=== PATIENT | female | born 1965 | race Caucasian/White ===

== ENCOUNTER 2018-01-07 06:13 | Inpatient (IN) | payer OTHER ==
[~2018-01-07 06:13] MED LIST: Buffered Lidocaine 0.9% SYRIN* 5 ML/SYR SYRINGE INTRADERM ONE; Famotidine TAB* 20 MG PO ONE
[2018-01-07] MEDS ORDERED: ceFAZolin 2 GM PREMIX (*) 2 GM/50 ML BAG IVPB ONE ×2 (06:14→12:11)
[2018-01-07] MEDS ORDERED: Famotidine TAB* 20 MG ONE (06:14)
[2018-01-07] MEDS ORDERED: Lidocaine 1% MPF wEPI 200,000* 30 ML SDV ONE (07:07)
[2018-01-07] MEDS ORDERED: Thrombin 5,000 UNITS* 1 APPLIC KIT - topical use - TOPICAL ONE (07:07)
[2018-01-07] MEDS ORDERED: Bacitracin IV* 50,000 UNITS INJ ONE ×2 (07:07→13:11)
[2018-01-07] MEDS ORDERED: fentaNYL* 50 MCG/ML 2 ML VIAL (100 MCG VIAL) ONE ×3 (07:17→14:37)
[2018-01-07] MEDS ORDERED: Propofol* 10 MG/ML 20 ML BTL IV PUSH ONE ×3 (07:17→09:45)
[2018-01-07] MEDS ORDERED: Dexamethasone IV* 4 MG/ML 1 ML (4 MG) ONE ×2 (07:17→11:02)
[2018-01-07] MEDS ORDERED: Midazolam* 1 MG/ML 2 ML VIAL (2 MG) ONE (07:17)
[2018-01-07] MEDS ORDERED: Lidocaine 2% PF * 5 ML VIAL ONE (07:18)
[2018-01-07] MEDS ORDERED: Rocuronium* 10 MG/ML VIAL ONE (07:20)
[2018-01-07] MEDS ORDERED: Artificial Tear OPHTH.OINT* 3.5 GM ONE (07:46)
[2018-01-07] MEDS ORDERED: Succinylcholine* 20 MG/ML 10 ML VIAL ONE (08:05)
[2018-01-07] MEDS ORDERED: fentaNYL* 50 MCG/ML 5 ML VIAL (250 MCG VIAL) ONE ×2 (08:25→09:45)
[2018-01-07] MEDS ORDERED: EPHEDrine (Pressors)* 50 MG/ML VIAL ONE (08:31)
[2018-01-07] MEDS ORDERED: Propofol* 2,000 MG/200 ML BTL ONE (09:40)
[2018-01-07] MEDS ORDERED: Midazolam* 1 MG/ML 5 ML VIAL (5 MG) ONE (10:09)
[2018-01-07] MEDS ORDERED: Propofol* 100 ML ONE (11:45)
[2018-01-07] MEDS ORDERED: DiMENhydriNATE IV* 50 MG/ML VIAL IV PUSH PRN (12:40)
[2018-01-07] MEDS ORDERED: Acetaminophen IV 1GM/100ML * 1,000 MG/100 ML VIAL IVPB ONE (12:40)
[2018-01-07] MEDS ORDERED: Naloxone* 0.4 MG/ML 1 ML VIAL IV PRN (12:40)
[2018-01-07] MEDS ORDERED: Acetaminophen IV 1GM/100ML * 10 MG/ML VIAL IVPB ONE (12:40)
[2018-01-07] MEDS ORDERED: Ondansetron INJ* 2 MG/ML VIAL ONE (13:15)
[2018-01-07] MEDS ORDERED: Acetaminophen IV 1GM/100ML * 100 ML ONE (13:45)
[2018-01-07] MEDS: fentaNYL* 50 MCG/ML 2 ML VIAL (100 MCG VIAL) IV PRN ×3 (14:21→14:42)
--- NOTE | 2018-01-07 14:30 | RAD ---
INDICATION: Spinal fusion COMPARISONS: Plain film dated November 03, 2017 TECHNIQUE: Fluoroscopy was provided for a surgical procedure. Total fluoroscopy time is: 19.23 seconds. The 3-D CTDI is 52.35 FINDINGS: Spot images and coned-down images demonstrate fusion at L4 and L5 counting from L5 as the last lumbar type vertebral body. IMPRESSION: FLUOROSCOPY WAS PROVIDED FOR A SURGICAL PROCEDURE CPT II Codes: G9500
[2018-01-07] MEDS ORDERED: HYDROmorphone INJ* 2 MG/ML CARPUJECT SYRINGE ONE (14:37)
[2018-01-07] MEDS: Gabapentin CAP(*) 300 MG PO SCH ×2 (14:43→20:23)
[2018-01-07] MEDS: HYDROmorphone INJ* 1 MG/ML CARPUJECT SYRINGE IV PRN ×2 (14:49→15:05)
[2018-01-07] MEDS: FLUoxetine CAP* 20 MG PO SCH (17:51)
[2018-01-07] MEDS: HYDROcodone/ACETAMIN 5-325 MG* 1 TAB PO PRN ×2 (17:51→22:20)
[2018-01-07] MEDS ORDERED: Cyclobenzaprine TAB* 10 MG PO PRN (18:42)
[2018-01-07] MEDS: Acetaminophen TAB* 325 MG PO PRN (20:23)
[2018-01-08] MEDS: Acetaminophen TAB* 325 MG PO PRN (00:16)
[2018-01-08] MEDS: HYDROcodone/ACETAMIN 5-325 MG* 1 TAB PO PRN ×5 (02:27→20:38)
[2018-01-08] MEDS: Levothyroxine TAB* 100 MCG TAB PO SCH (06:19)
--- NOTE | 2018-01-08 08:29 | PN ---
Progress Note - Progress Note Date of Service: 01/08/18 SOAP: Subjective: [S/p L4-5 TLIF with laminectomy and discectomy on right, POD #1. Surgery complicated by dural tear repaired in during surgery. Complains of headache and low back incisional pain today. Pain controlled with PO pain medications and muscle relaxant. Denies nausea.] Objective: [ Vital Signs: Temp Pulse Resp BP Pulse Ox 97.8 F 75 14 121/74 98 01/08/18 07:12 01/08/18 07:12 01/08/18 07:12 01/08/18 07:12 01/08/18 07:12 General: Alert and laying flat in bed. Neuro: Motor and sensory intact. Incision: Intact and flat, no swelling.] Assessment: [Headache post-op, pain controlled with PO meds.] Plan: [1. Maintain HOB flat, bedrest today. 2. Continue pain management.]
[2018-01-08] MEDS: Gabapentin CAP(*) 300 MG PO SCH ×3 (09:19→20:37)
[2018-01-08] MEDS: Atorvastatin* 20 MG TAB PO SCH (13:40)
[2018-01-08] MEDS: Omeprazole CAP* 20 MG PO SCH (13:40)
[2018-01-08] MEDS ORDERED: Senna TAB PO PRN (15:22)
--- NOTE | 2018-01-08 17:41 | OP ---
OPERATIVE REPORT: DATE OF SURGERY: 01/07/18 - Inpatient, room SSU 339-01 DATE OF : 63 SURGEON: Ramone Steiner MD. APPLICATIONS MANAGER: AUSTIN Marquez Procedure was performed with assistance of the PA because of the complexity of the case. ANESTHESIOLOGIST: Nura Washburn MD. ANESTHESIA: General. PRE-OP DIAGNOSES: Degenerative disk disease and spondylolisthesis at L4-5. POST-OP DIAGNOSES: Degenerative disk disease and spondylolisthesis at L4-5. OPERATIVE PROCEDURE: The patient underwent right L4-5 MIS TLIF with decompressive laminectomy, interbody PEEK cage with autologous iliac crest bone graft and DBM pedicle screws at L4 and L5 with intraoperative navigation and L5 laminotomy. ESTIMATED BLOOD LOSS: Per Anesthesia records. COMPLICATIONS: None. SUMMARY: The patient is a very pleasant 52-year-old female with complaints of back pain radiating to the right lower extremity. MRI revealed degenerative disk disease with spondylolisthesis at L4-5. The patient had weakness of the right foot dorsiflexion and EHL as well as plantarflexion with decreased sensation in the right foot. After failing conservative treatment modalities, she was offered the option of surgical intervention in the form of right L4-5 MIS TLIF. After explaining all expectations, limitations, and possible complication of the procedure with complications included, but not limited to bleeding, infection, risk of injury to adjacent structures, coma, paralysis, , need for additional procedure, anesthesia risks, stroke, blindness, cancer, instability, hardware failure, adjacent level disease, pseudoarthrosis, spinal fluid leak, need for peritoneal lumbar drain or lumboperitoneal shunt, anesthesia risk. The patient was agreeable to proceed with surgery and informed consent was obtained. The patient understood that her condition may not improve and in fact may get worse after the surgery and that she may need to have additional procedure in the future. She understood the risk of prolonged hospitalization and need for ICU care and also that operative plan may be modified according to the intraoperative findings and conditions. The same were discussed with the patient's son and the whole family was agreeable to proceed with surgery. DESCRIPTION OF PROCEDURE: The patient was brought to the operating room and was placed under general anesthesia by the anesthesia team. She was carefully positioned prone on the Raza table and all bony prominences were meticulously padded. Her skin was prepped and draped in the standard fashion. After appropriate surgical pause and patient identification, one incision over the right iliac crest was performed with #10 surgical blade after infiltrating the skin with local anesthetic. The Corex trocar was used to harvest the iliac crest bone graft and percutaneous pin was inserted to secure the navigation star. Intraoperative O- arm imaging was obtained and the patient data was transferred in the navigation platform. Under stereotactic navigation, the appropriate surgical level was identified and the paramedian incision that was right in the midline was performed after infiltrating the skin with local anesthetic #10 was used to incise the skin. Incision was carried down to the dorsal fascia and a METRx retractor was introduced over series of dilators. Appropriate surgical level was confirmed with intraoperative navigation and a laminectomy L5 on the left side was performed with high speed drill and Kerrison punches, partial facetectomy was also performed and the locally harvested bone graft was kept for filling portion of the procedure. The L5 nerve root was readily identified and foraminotomy was performed. The disk space was identified also after gentle retraction of the nerve root and the thecal sac. A final diskectomy was performed after incising the annulus fibrosis with #15 surgical blade and the disk space was prepared with a series of dilators and curettes. After appropriate sizing of the disk space, a 11 x 26 CAPSTONE PTC Medtronic interbody cage was introduced after being filled with locally and right iliac crest bone graft and DBM putty while the remainder of the graft was inserted into the disk space prior to the insertion of the cage. At the end of the procedure, the thecal sac and nerve root was free of any pressure phenomenon and copious irrigation was performed and meticulous hemostasis was confirmed. A small durotomy was identified in the superior part of the exposed dura without extension to the arachnoid layer. It was elected to enforce this durotomy with dural drain and dressing in 2 layers. Valsalva maneuver did not reveal any evidence of spinal fluid leak. The tubular dilator was then gently removed and after meticulous hemostasis was confirmed, the dorsal fascia was closed with interrupted 0-Vicryl sutures in a water-tight fashion. A second O-arm imaging was then obtained and data was used to confirm excellent placement of interbody cage as well as plan for the insertion of the pedicle screws. During the durotomy repair, a small decrease of the SSEPs was identified, which was responsive to blood pressure elevations as well as an extra 2 mg of Decadron throughout the remaining of the procedure. The SSEPs were constantly improving. The projection of the pedicle screws was marked on the skin and the pedicles were cannulated with high torque drill with navigated drill guide and after placement of guidewires, Medtronic Voyager 6.5 x 40 mm screws were inserted at L4 and L5. Two 4.5 mm sarah screws were then inserted and connected with screw head caps. Final intraoperative OR imaging confirmed excellent placement of all hardware. The expansion towers were then removed as well as the navigation pin and the wounds were copiously irrigated and after meticulous hemostasis, closed by layers with 0 interrupted Vicryl suture for subcutaneous tissue and 2-0 interrupted for superficial layer of the subcutaneous tissue. All the skin was then approximated with 3-0 Prolene for lumbar incisions and with Dermabond over the iliac crest incision. At the end of the procedure, all counts were reported to be correct. The patient remained hemodynamically stable throughout the case. Intraoperative monitoring was stable throughout the case with the exception of decrease of the right lower extremity SSEP which was improving through the remaining of the case. The patient was then turned supine, was extubated and was transferred to Recovery in excellent condition. The case was done with assistance of surgical PA because of the complexity of the case [id number]/[facility] #: [id number] YADIRA
[2018-01-08] MEDS: Diazepam TAB(*) 5 MG PO PRN (17:49)
[2018-01-08] MEDS: FLUoxetine CAP* 20 MG PO SCH (17:49)
[2018-01-08] MEDS: Docusate CAP* 100 MG PO PRN (17:52)
[2018-01-08] MEDS: Ondansetron INJ* 2 MG/ML VIAL IV PRN (21:52)
[2018-01-09] MEDS: HYDROcodone/ACETAMIN 5-325 MG* 1 TAB PO PRN ×2 (00:45→05:53)
[2018-01-09] MEDS: Levothyroxine TAB* 100 MCG TAB PO SCH (05:52)
[2018-01-09] MEDS: Ondansetron INJ* 2 MG/ML VIAL IV PRN (09:15)
[2018-01-09] MEDS: Gabapentin CAP(*) 300 MG PO SCH ×3 (09:59→20:53)
--- NOTE | 2018-01-09 10:40 | PN ---
Progress Note - Progress Note Date of Service: 01/09/18 SOAP: Subjective: [S/p L4-5 TLIF POD #2. Persistent BAUER. Improved yesterday but now severe again. Complains of nausea as well, has experienced side effects to pain meds in past. Low back is sore with occasional stabbing pain. Lower extremity pain experienced last night is now resolved. ] Objective: [ Vital Signs: Temp Pulse Resp BP Pulse Ox 98.0 F 76 18 116/68 91 01/09/18 07:41 01/09/18 07:41 01/09/18 09:59 01/09/18 07:41 01/09/18 07:41 General: Laying flat in bed. Neuro: RLE weakness dorsiflexion, plantarflexion and EHL as was pre-op. Incision: Flat, no swelling, nontender.] Assessment: [Post-op L4-5 TLIF. Persistent BAUER and mild nausea. ] Plan: [1. Continue pain management, try decreasing norco and substituting with tylenol and valium. 2. Continue to monitor incision for bulging and drainage. 3. Continue bowel medications.]
[2018-01-09] MEDS: Omeprazole CAP* 20 MG PO SCH (11:34)
[2018-01-09] MEDS: Diazepam TAB(*) 5 MG PO PRN ×2 (11:34→20:53)
[2018-01-09] MEDS: Atorvastatin* 20 MG TAB PO SCH (11:34)
[2018-01-09] MEDS: FLUoxetine CAP* 20 MG PO SCH (18:00)
[2018-01-09] MEDS ORDERED: Bisacodyl SUPP* 10 MG SUPP PR PRN (19:06)
[2018-01-09] MEDS ORDERED: HYDROcodone/ACETAMIN 5-325 MG* 1 TAB PO PRN (19:07)
[2018-01-09] MEDS: Magnesium Hydroxide LIQ* 30 ML UDC PO PRN (19:24)
[2018-01-09] MEDS: Docusate CAP* 100 MG PO PRN (19:24)
[2018-01-10] MEDS: Acetaminophen TAB* 325 MG PO PRN ×4 (03:37→19:22)
[2018-01-10] MEDS: Levothyroxine TAB* 100 MCG TAB PO SCH (05:24)
--- NOTE | 2018-01-10 08:25 | PN ---
Progress Note - Progress Note Date of Service: 01/10/18 SOAP: Subjective: [S/p L4-5 TLIF, POD #3. Patient feeling much better this morning. HOB elevated to 30 degrees yesterday without worsening of BAUER, pt feels better sitting up. Headache comes and goes; unrelated to position and HOB degree. Taking Tylenol for pain; likely experienced nausea and BAUER with Talihina. Valium effective for lumbar soreness and muscle spasms. No recent BM, bowel meds ordered and suppository given this morning. Reports numbness/altered sensation to dorsal right foot. Denies fever, chills and nausea this morning. ] Objective: [ Vital Signs: Temp Pulse Resp BP Pulse Ox 98.4 F 78 20 119/87 91 01/10/18 07:18 01/10/18 07:18 01/10/18 07:41 01/10/18 07:18 01/10/18 07:18 General: Awake and alert, recumbent in bed. More comfortable this morning. Neuro: Motor and sensory intact. Right foot weakness improving. Incision: Intact and dressings in place. No bulging. Nontender. ] Assessment: [Post-op TLIF L4-5, satisfactory post-op course. Headache improving. No BM but meds available. Pain well controlled. ] Plan: [1. Continue bowel medications 2. Continue pain/spasms management, Tylenol and Valium 3. Up out of bed to chair this morning. If BAUER worsens, return to bed. 4. Place lumbar corset brace while out of bed. 5. Possibly PT/OT evaluation this afternoon. ]
[2018-01-10] MEDS: Gabapentin CAP(*) 300 MG PO SCH ×3 (08:44→19:22)
[2018-01-10] MEDS: Magnesium Hydroxide LIQ* 30 ML UDC PO PRN (08:49)
[2018-01-10] MEDS: Docusate CAP* 100 MG PO PRN (08:50)
[2018-01-10] MEDS: Diazepam TAB(*) 5 MG PO PRN (08:50)
[2018-01-10] MEDS: Atorvastatin* 20 MG TAB PO SCH (13:13)
[2018-01-10] MEDS: Omeprazole CAP* 20 MG PO SCH (13:13)
[2018-01-10] MEDS: FLUoxetine CAP* 20 MG PO SCH (18:13)
[2018-01-11] MEDS: Acetaminophen TAB* 325 MG PO PRN ×3 (01:00→12:09)
[2018-01-11] MEDS: Diazepam TAB(*) 5 MG PO PRN ×2 (02:01→12:08)
[2018-01-11] MEDS: Levothyroxine TAB* 100 MCG TAB PO SCH (05:21)
--- NOTE | 2018-01-11 07:58 | PN ---
Progress Note - Progress Note Date of Service: 01/11/18 SOAP: Subjective: [S/p L4-5 TLIF, POD #4. Feeling much better this morning although complains of intermittent right thigh stabbing pain. Pain and spasms well controlled with tylenol and valium PO. She is ambulating with a walker. Headache is intermittent, unrelated to position. Denies nausea, fever, chills. ] Objective: [ Vital Signs: Temp Pulse Resp BP Pulse Ox 98.1 F 87 18 121/73 94 01/11/18 04:04 01/11/18 04:04 01/11/18 05:01 01/11/18 04:04 01/11/18 04:04 General: Alert, expressed moderate back pain. Neuro: Motor and sensory intact. Incision: Intact and without bulging or drainage. ] Assessment: [ Satisfactory post-op. ] Plan: [1. PT/OT evals this morning. 2. Discharge home today. 3. Discharge instructions discussed with the patient. ]
--- NOTE | 2018-01-11 08:20 | RAD ---
HISTORY: Status post spinal fusion COMPARISONS: November 03, 2014 VIEWS: 3 , Frontal, lateral, and coned-down lateral sacral views of the lumbar spine while weightbearing FINDINGS: ALIGNMENT: The alignment is normal. VERTEBRAL BODIES: Patient is status post spinal fusion with pedicle screws at L4 and L5. There is no hardware failure or osteolysis. JOINTS: There is extensive facet hypertrophic change along the lumbar spine. INTERVERTEBRAL DISCS: Intervertebral graft material is noted at L4-L5. SOFT TISSUE: Unremarkable. 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 IMPRESSION: STATUS POST SPINAL FUSION AT L4-L5
[2018-01-11] MEDS: Gabapentin CAP(*) 300 MG PO SCH (08:49)
[2018-01-11 12:05] VITALS: BP 130/83
[2018-01-11] MEDS: Omeprazole CAP* 20 MG PO SCH (12:08)
[2018-01-11] MEDS: Atorvastatin* 20 MG TAB PO SCH (12:09)
== END 2018-01-11 12:20 | disposition home or self-care (01) | DRG 460 ==
LOC: AA 06:13 → SSU 13:26
PROVIDERS: ADMIT Neurological Surgery; ATTEND Neurological Surgery
PROC: 0SB20ZZ Excision of Lumbar Vertebral Disc, Open Approach (ICD-10-PCS; 2018-01-07)
PROC: 0QB20ZZ Excision of Right Pelvic Bone, Open Approach (ICD-10-PCS; 2018-01-07)
PROC: 00QT0ZZ Repair Spinal Meninges, Open Approach (ICD-10-PCS; 2018-01-07)
PROC: 8E0WXBF Computer Assisted Procedure of Trunk Region, With Fluoroscopy (ICD-10-PCS; 2018-01-07)
PROC: 0SG00AJ Fusion of Lumbar Vertebral Joint with Interbody Fusion Device, Posterior Approach, Anterior Column, Open Approach (ICD-10-PCS; principal; 2018-01-07 07:30)
DX: M51.16 Intervertebral disc disorders with radiculopathy, lumbar region (principal); G97.41 Accidental puncture or laceration of dura during a procedure; M43.16 Spondylolisthesis, lumbar region; Y83.8 Other surgical procedures as the cause of abnormal reaction of the patient, or of later complication, without mention of misadventure at the time of the procedure; Y92.234 Operating room of hospital as the place of occurrence of the external cause; M48.061 Spinal stenosis, lumbar region without neurogenic claudication; M51.27 Other intervertebral disc displacement, lumbosacral region; M47.26 Other spondylosis with radiculopathy, lumbar region; E66.9 Obesity, unspecified; R51 Headache; R11.0 Nausea; R20.0 Anesthesia of skin; E78.00 Pure hypercholesterolemia, unspecified; M19.90 Unspecified osteoarthritis, unspecified site; F32.9 Major depressive disorder, single episode, unspecified; Z88.5 Allergy status to narcotic agent; Z87.891 Personal history of nicotine dependence; Z68.36 Body mass index [BMI] 36.0-36.9, adult
CPT/HCPCS: 72100; 76001; A9270-GY; J0330; J0690; J1100; J1170; J2001; J2250; J2405; J2704; J3010

== ENCOUNTER 2019-01-28 14:18 | Emergency (ER) | payer OTHER ==
--- OUTSIDE RECORDS SUMMARY | 2019-01-28 14:31 | XMS REPORT | Continuity of Care Document ---
:1965 External Reference #:[id number] Author Name Sailaja Cross Care Team Providers Name Role Phone Monse Chahal MD Primary Care Physician Unavailable Payers Date Identification Numbers Payment Provider Subscriber Policy Number: [id number] [employer] Ashli Larkin PayID: [id number] [address] [place] [address] Advance Directives Description No Information Available Problems Active Problems Provider Date Lumbar spondylolisthesis Ramone Steiner MD Onset: 11/03/2017 Lumbosacral spondylosis without myelopathy Ramone Steiner MD Onset: Obesity Ramone Steiner MD Onset: 11/03/2017 Localized, primary osteoarthritis of the Moira Walker M.D. Onset: 04/19/2018 pelvic region and thigh Trochanteric bursitis Moira Walker M.D. Onset: 04/19/2018 Morbid obesity Moira Walker M.D. 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[employer] ETOH Use Denies alcohol use Tobacco Use Start: Unknown End: Patient is a former smoker Unknown Recreational Drug Use Denies Drug Use Smoking Status Reviewed: 01/26/19 Patient is a former smoker Exercise Type/Frequency Does not exercise Allergies, Adverse Reactions, Alerts Active Allergies Reaction Severity Comments Date Codeine Nausea and Vomiting 11/03/2017 Medications Active Medications SIG Qnty Indications Ordering Provider Date Atorvastatin Calcium take 1 tablet at Unknown 20mg bedtime Tablets Esomeprazole Magnesium 1 by mouth every Unknown 20mg day Capsules DR Fluoxetine HCL 1 by mouth every Unknown 20mg day Capsules Levothyroxine Sodium 1 by mouth every Unknown 100mcg day Tablets Tramadol HCL take 1 tablet by Unknown 50mg Tablets mouth every 4 to 6 hours if needed for pain History Medications Clobetasol Propionate apply twice daily to Unknown - 2017 0.05% affected area. use for Solution two weeks and then stop. Diclofenac Sodium take 1 tablet twice a Unknown - 11/03/[address] day with food Gabapentin 1 by mouth three times Unknown - 08/03/2018 300mg Capsules a day Melatonin 1 tab by mouth at Unknown - 11/03/2017 10mg Capsules bedtime as needed for insomnia Phentermine HCL as needed Unknown - 11/03/2017 37.5mg Tablets Ibuprofen as needed Unknown - 01/20/2018 200mg Capsules Medications Administered in Office Medication SIG Qnty Indications Ordering Provider Date Depomedrol 40MG Moira Walker M.D. 08/04/2018 Injection Depomedrol 40MG Moira Walker M.D. 04/26/2018 Injection Depomedrol 40MG Moira Walker M.D. 04/19/2018 Injection Immunizations Description No Information Available Vital Signs Date Vital Result Comment 01/26/2019 8:17am Height 68 inches 5'8" Weight 280.00 lb BP Systolic Sitting 126 mmHg BP Diastolic Sitting 80 mmHg Pain Level 3 BMI (Body Mass Index) 42.6 kg/m2 12/10/2018 8:28am Height 68 inches 5'8" Weight 280.00 lb BP Systolic Sitting 130 mmHg BP Diastolic Sitting 88 mmHg Pain Level 3 BMI (Body Mass Index) 42.6 kg/m2 11/16/2018 3:02pm Height 68 inches 5'8" Weight 280.00 lb BP Systolic Sitting 130 mmHg BP Diastolic Sitting 84 mmHg Pain Level 5 BMI (Body Mass Index) 42.6 kg/m2 08/30/2018 12:56pm Height 68 inches 5'8" Weight 272.00 lb BP Systolic Sitting 130 mmHg BP Diastolic Sitting 78 mmHg Pain Level 2 BMI (Body Mass Index) 41.4 kg/m2 08/04/2018 8:01am Height 68 inches 5'8" Weight 272.00 lb BP Systolic 124 mmHg BP Diastolic 84 mmHg Body Temperature 98.3 F BMI (Body Mass Index) 41.4 kg/m2 06/14/2018 2:18pm Height 68 inches 5'8" Weight 260.00 lb BP Systolic Sitting 122 mmHg BP Diastolic Sitting 86 mmHg Pain Level 6 BMI (Body Mass Index) 39.5 kg/m2 05/31/2018 2:42pm Height 68 inches 5'8" Weight 260.00 lb Heart Rate 74 /min BP Systolic 118 mmHg BP Diastolic 72 mmHg Respiratory Rate 12 /min Pain Level 0 BMI (Body Mass Index) 39.5 kg/m2 04/26/2018 2:33pm Height 68 inches 5'8" Weight 265.00 lb BP Systolic 122 mmHg BP Diastolic 84 mmHg Body Temperature 98.3 F BMI (Body Mass Index) 40.3 kg/m2 04/19/2018 9:39am Height 68 inches 5'8" Weight 258.50 lb Heart Rate 72 /min BP Systolic 118 mmHg BP Diastolic 76 mmHg Respiratory Rate 12 /min Body Temperature 99.2 F Pain Level 4 BMI (Body Mass Index) 39.3 kg/m2 04/12/2018 1:49pm Height 68 inches 5'8" Weight 262.00 lb Heart Rate 92 /min BP Systolic Sitting 130 mmHg BP Diastolic Sitting 94 mmHg Respiratory Rate 16 /min Pain Level 1 BMI (Body Mass Index) 39.8 kg/m2 03/01/2018 2:22pm Height 68 inches 5'8" Weight 255.00 lb Heart Rate 108 /min BP Systolic 124 mmHg BP Diastolic 82 mmHg Respiratory Rate 20 /min Pain Level 3 BMI (Body Mass Index) 38.8 kg/m2 01/27/2018 10:57am Height 68 inches 5'8" Weight 240.00 lb BP Systolic Sitting 110 mmHg BP Diastolic Sitting 78 mmHg Body Temperature 98.0 F Pain Level 1 BMI (Body Mass Index) 36.5 kg/m2 01/20/2018 12:56pm Height 68 inches 5'8" Weight 240.00 lb BP Systolic Sitting 122 mmHg BP Diastolic Sitting 78 mmHg Body Temperature 98.7 F Pain Level 4 BMI (Body Mass Index) 36.5 kg/m2 01/01/2018 12:44pm Height 68 inches 5'8" Weight 240.00 lb BP Systolic Sitting 122 mmHg BP Diastolic Sitting 80 mmHg Pain Level 3 BMI (Body Mass Index) 36.5 kg/m2 11/03/2017 9:13am Height 68 inches 5'8" Weight 240.00 lb Heart Rate 77 /min BP Systolic Sitting 126 mmHg BP Diastolic Sitting 81 mmHg Pain Level 2 BMI (Body Mass Index) 36.5 kg/m2 Results Test Date Facility Test Result H/L Range Note Basic Metabolic 01/01/2018 [facility] Sodium 140 mmol/L N 139- [address] [place] [address] [phone] Potassium 4.5 mmol/L N 3.5-5.0 Chloride 104 mmol/L N 101-111 Co2 Carbon Dioxide 28 mmol/L N 22-32 Anion Gap 8 mmol/L N 2-11 Glucose 103 mg/dL High 70-100 Blood Urea Nitrogen 16 mg/dL N 6-24 Creatinine 0.78 mg/dL N 0.51-0.95 BUN/Creatinine Ratio 20.5 High 8-20 Calcium 8.6 mg/dL N 8.6-10.3 Egfr Non- 77.3 >60 Egfr 99.4 >60 1 Laboratory test 12/31/2017 [facility] TSH (Thyroid 1.37 mcIU/mL N 0.34-5.[address] [place]) [place] [address] [phone] Type & Screen 12/31/2017 [facility] Patient Blood O Positive [address] [place] [address] [phone] Antibody Screen NEGATIVE Urinalysis Profile 12/31/2017 [facility] Urine Color Yellow [facility] [place] [address] [phone] Urine Appearance Clear Urine Specific Vail 1.025 N 1.010-1.030 Urine pH 5.0 N 5-9 Urine Urobilinogen Negative Negative Urine Ketones Negative Negative Urine Protein Negative Negative Urine Leukocytes Negative Negative Urine Blood Negative Negative Urine Nitrite Negative Negative Urine Bilirubin Negative Negative Urine Glucose Negative Negative Laboratory test 12/31/2017 [facility] Partial 32.6 seconds N 26.0-36.[address] [place] [address] PTT [phone] Inr/Protime 12/31/2017 [facility] Inr 0.86 N 0.77-1.[address] [place] [address] [phone] CBC No Diff 12/31/2017 [facility] White Blood 6.8 10^3/uL N 3.5-10.[address] [place] [address] [phone] Red Blood Count 5.33 10^6/uL N 4.0-5.4 Hemoglobin 15.5 g/dL N 12.0-16.0 Hematocrit 47 % N 35-47 Mean Corpuscular Volume 88 fL N 80-97 Mean Corpuscular Hemoglobin 29 pg N 27-31 Mean Corpuscular HGB Conc 33 g/dL N 31-36 Red Cell Distribution Width 13 % N 10.5-15 Platelet Count 264 10^3/uL N 150-450 Mean Platelet Volume 8.3 um3 N 7.4-10.4 1 Because ethnic data is not always readily available, this report includes an eGFR for both -Americans and non- Americans. The National Kidney Disease Education Program (NKDEP) does not endorse the use of the MDRD equation for patients that are not between the ages of 18 and 70, are , have extremes of body size, muscle mass, or nutritional status, or are non- or non-. According to the National Kidney Foundation, irrespective of diagnosis, the stage of the disease is based on the level of kidney function: Stage Description GFR(mL/min/1.73 m(2)) 1 Kidney damage with normal or decreased GFR 90 2 Kidney damage with mild decrease in GFR 60-89 3 Moderate decrease in GFR 30-59 4 Severe decrease in GFR 15-29 5 Kidney failure <15 (or dialysis) Procedures Date Code Description Status 08/04/2018 Injection Single Tendon Origin/Insertion Completed 04/26/2018 Injection Single Tendon Origin/Insertion Completed 04/19/2018 Injection Single Tendon Origin/Insertion Completed 01/07/2018 58254 Driver/Facet/Foraminotomy;Vertebral Segment; Lumbar Completed 01/07/2018 05228 Driver/Facet/Foraminotomy;Vertebral Segment; Lumbar Completed 01/07/2018 58583 Stereotactic Computer-Assisted, Spinal Completed 01/07/2018 02444 Insertion Interbody Biomechanical Device; Each Interspace Completed 01/07/2018 23990 Insertion Interbody Biomechanical Device; Each Interspace Completed 01/07/2018 30365 Non-Segmental Instrumentation Posterior 1 Interspace Completed 01/07/201873314 Non-Segmental Instrumentation Posterior 1 Interspace Completed 01/07/201843805 Arthrodesis Posterior Interbody Technique Completed 01/07/2018 Arthrodesis Posterior Interbody Technique Completed 01/07/201825853 Autograft For Spine Surgery, Morselized Completed 01/07/2018 Allograft For Spine Surgery, Morselized Completed Encounters Type Date Location Provider Dx Diagnosis Office Visit 12/10/2018 [facility] M47.26 Other spondylosis 8:30a Services Of Romie Steiner MD with radiculopathy, lumbar region M51.36 Other intervertebral disc degeneration, lumbar region M54.2 Cervicalgia M51.24 Other intervertebral disc displacement, thoracic region Office 11/16/2018 [facility] M47.26 Other spondylosis Visit 2:30p Services Of Romie Steiner MD with radiculopathy, lumbar region Office 08/30/2018 [facility] Z48.89 Encounter for Visit 1:00p Services Of Romie Steiner MD other specified surgical aftercare Office 06/14/2018 [facility] M48.061 Spinal stenosis, Visit 2:30p Services Of Romie Steiner MD lumbar region without neurogenic christy M47.26 Other spondylosis with radiculopathy, lumbar region M54.5 Low back pain Office Visit 05/31/2018 2:15p [facility] Moira Walker, M25.551 Pain in right Of C.M.A. M.D. hip M70.61 Trochanteric bursitis, right hip M25.552 Pain in left hip M70.62 Trochanteric bursitis, left hip Office Visit 04/19/2018 9:45a [facility] Moira Walker, M25.551 Pain in right Of C.M.A. M.D. hip M25.552 Pain in left hip M16.11 Unilateral primary osteoarthritis, right hip M16.12 Unilateral primary osteoarthritis, left hip M70.61 Trochanteric bursitis, right hip M70.62 Trochanteric bursitis, left hip E66.01 Morbid (severe) obesity due to excess calories Z68.39 Body mass index (BMI) 39.0-39.9, adult Office Visit 04/12/2018 Neurosurgery [facility] Z48.89 Encounter for 2:00p Services Of Romie Steiner MD other specified surgical aftercare E66.8 Other obesity M25.551 Pain in right hip M25.552 Pain in left hip Office 11/03/2017 [facility] [place] M43.16 Spondylolisthesis, Visit 9:30a Services Of Romie Steiner MD lumbar region M47.26 Other spondylosis with radiculopathy, lumbar region E66.8 Other obesity Plan of Treatment Future Appointment(s):01/28/2019 1:45 pm - Kulwinder Bryan M.D. at [id number]/28/2019 1:00 pm - Ramone Steiner MD at [facility]01/26/2019 - Ramone Steiner, MDM47.26 Other spondylosis with radiculopathy, lumbar fummqwZ67.36 Other intervertebral disc degeneration, lumbar qotlsjW39.24 Other intervertebral disc displacement, thoracic tackbnC10.14 Other spondylosis with myelopathy, thoracic regionReferral :Kulwinder Bryan MD, NeurologyFollow up:RV in 2 months. Please notify me when neurology clearance for surgery is done.
[2019-01-28 16:21] LABS: ABS Basophils 0.1 10^3/ul (0-0.2); ABS Eosinophils 0.1 10^3/ul (0-0.6); ABS Lymphocytes 2.4 10^3/ul (1.0-4.8); ABS Monocytes 0.6 10^3/ul (0-0.8); ABS Neutrophils 6.4 10^3/ul (1.5-7.7); Eosinophil % 1.1 %; Hematocrit 47 % (35-47); Hemoglobin 15.3 g/dL (12.0-16.0); Lymphocyte % 25.3 %; Mean Corpuscular HGB Conc 32 g/dL (31-36); Mean Corpuscular Hemoglobin 28 pg (27-31); Mean Corpuscular Volume 86 fL (80-97); Mean Platelet Volume 8.1 fL (7.4-10.4); Platelet Count 283 10^3/uL (150-450); Red Blood Count 5.52 10^6 /uL (3.70-4.87); Red Cell Distribution Width 14 % (10.5-15); White Blood Count 9.6 10^3/uL (3.5-10.8)
[2019-01-28 16:39] LABS: Albumin 4.2 g/dL (3.2-5.2); Albumin/Globulin Ratio 1.5 (1-3); BUN/Creatinine Ratio 24.1 (8-20); Calcium 9.4 mg/dL (8.6-10.3); EGFR African American 86.7 (>60); EGFR Non-African American 71.6 (>60); Globulin 2.8 g/dL (2-4); Potassium 4.3 mmol/L (3.5-5.0); Total Bilirubin 0.3 mg/dL (0.2-1.0)
--- NOTE | 2019-01-28 17:34 | ED ---
Throat Pain/Nasal Congestion - HPI Summary HPI Summary: This patient is a 53 year old female presenting to [facility] with a chief complaint of vision problems since 3 weeks ago. She states her eye has been having trouble focusing. The patient reports diaphoresis. She also reports headaches from Hx of migraines and numbness in her feet from previous back problems. The patient was sent here by Dr. Andujar, Neuro Surg. Pt denies any fever, chills , erythema of eyes, sore throat, CP, SOB, cough, abdominal pain, N/V, dysuria, hematuria, myalgia, edema, rash, or dizziness. Atorvastatin* [Lipitor 20 MG*] 20 mg PO BEDTIME 12/31/17 [History Confirmed 07/09] Esomeprazole(NF) [Nexium(NF)] 20 mg PO DAILY 12/31/17 [History Confirmed ] FLUoxetine CAP* [Prozac CAP*] 20 mg PO QPM 12/31/17 [History Confirmed 01/28/19] Levothyroxine TAB* [Synthroid 100 MCG TAB*] 100 mcg PO QAM 12/31/17 [History Confirmed 01/28/19] Acetaminophen [Acetaminophen Extra Strength] 500 mg PO DAILY PRN 07/02/18 [ History Confirmed 01/28/19] traMADol TAB* [Ultram*] 50 mg PO Q6HR PRN 01/10/19 [History Confirmed 01/28/19] - History of Current Complaint Chief Complaint: EDGeneral Time Seen by Provider: 01/28/19 17:26 Hx Obtained From: Patient Onset/Duration: Sudden Onset, Lasting Weeks, Still Present - Allergies/Home Medications Allergies/Adverse Reactions: Allergies Allergy/AdvReac Type Severity Reaction Status Date / Time codeine AdvReac Vomiting Verified 01/28/19 14:24 PMH/Surg Hx/FS Hx/Imm Hx Endocrine/Hematology History: Reports: Hx Thyroid Disease - hypo, Hx Anemia - childhood and during Denies: Hx Diabetes Cardiovascular History: Reports: Other Cardiovascular Problems/Disorders - hypercholesterolemia Denies: Hx Hypertension, Hx Pacemaker/ICD Respiratory History: Reports: Hx Sleep Apnea - CPAP, will bring GI History: Reports: Hx Gastroesophageal Reflux Disease, Hx Irritable Bowel - reports occas, Other GI Disorders - diverticulum noted at colonoscopy, endometriosis History: Reports: Other Problems/Disorders - weak bladder muscles, urethral stricture, followed by nikolay Denies: Hx Renal Disease Musculoskeletal History: Reports: Hx Arthritis, Hx Scoliosis - SLIGHT, Other Musculoskeletal History - lumbar spondylolisthesis Sensory History: Denies: Hx Hearing Aid Neurological History: Reports: Hx Headaches, Hx Migraine - no meds, Other Neuro Impairments/Disorders - PAIN CLINIC PT. Psychiatric History: Reports: Hx Depression Denies: Hx Panic Disorder - Surgical History Surgery Procedure, Year, and Place: 12/2017 - LUMBAR FUSION L4-5. 2 C SECTION - 1982 & . BIOPSY - GROIN. TUBAL LIGATION - 1984. HYSTERECTOMY 2009 Hx Anesthesia Reactions: No Infectious Disease History: No Infectious Disease History: Denies: Traveled Outside the [place] in Last 30 Days - Social History Alcohol Use: None Substance Use Type: Reports: None Smoking Status (MU): Former Smoker Amount Used/How Often: 1 ppd for 30 years Review of Systems Positive: Skin Diaphoresis Positive: Other - Vision focusing Negative: Sore Throat Negative: Chest Pain Negative: Shortness Of Breath, Cough Negative: Abdominal Pain, Vomiting, Nausea Negative: dysuria, hematuria Negative: Myalgia, Edema Neurological: Other - Neg: Dizziness Positive: Headache, Numbness All Other Systems Reviewed And Are Negative: No Physical Exam - Summary Physical Exam Summary: Constitutional: Well-developed, Well-nourished, Alert. (-) Distressed Skin: Warm, Dry HENT: Normocephalic; Atraumatic Eyes: Conjunctiva normal. Neck: Musculoskeletal ROM normal neck. (-) JVD, (-) Stridor, (-) Tracheal deviation Cardio: Rhythm regular, rate normal, Heart sounds normal; Intact distal pulses; The pedal pulses are 2+ and symmetric. Radial pulses are 2+ and symmetric. (-) Murmur Pulmonary/Chest wall: Effort normal. (-) Respiratory distress, (-) Wheezes, (-) Rales Abd: Soft, (-) tenderness, (-) Distension, (-) Guarding, (-) Rebound Musculoskeletal: (-) Edema Lymph: (-) Cervical adenopathy Neuro: Alert, Oriented x3 Psych: Mood and affect Normal Triage Information Reviewed: Yes Vital Signs On Initial Exam: Initial Vitals Temp Pulse Resp BP Pulse Ox 97.3 F 116 19 141/96 94 01/28/19 14:22 01/28/19 14:22 01/28/19 14:22 01/28/19 14:22 01/28/19 14:22 Vital Signs Reviewed: Yes Diagnostics - Vital Signs Vital Signs Temp Pulse Resp BP Pulse Ox 01/28/19 16:15 97.8 F 105 16 145/85 95 01/28/19 14:22 97.3 F 116 19 141/96 94 - Laboratory Lab Results: Lab Results 01/28/19 01/28/19 01/28/19 Range/Units 16:06 16:06 16:06 WBC 9.6 (3.5-10.8) 10^3/uL RBC 5.52 H (3.70-4.87) 10^6 /uL Hgb 15.3 (12.0-16.0) g/dL Hct 47 (35-47) % MCV 86 (80-97) fL MCH 28 (27-31) pg MCHC 32 (31-36) g/dL RDW 14 (10.5-15) % Plt Count 283 (150-450) 10^3/uL MPV 8.1 (7.4-10.4) fL Neut % (Auto) 66.4 % Lymph % (Auto) 25.3 % [place] % (Auto) 6.2 % Eos % (Auto) 1.1 % Baso % (Auto) 1.0 % Absolute Neuts (auto) 6.4 (1.5-7.7) 10^3/ul Absolute Lymphs (auto) 2.4 (1.0-4.8) 10^3/ul Absolute Monos (auto) 0.6 (0-0.8) 10^3/ul Absolute Eos (auto) 0.1 (0-0.6) 10^3/ul Absolute Basos (auto) 0.1 (0-0.2) 10^3/ul Absolute Nucleated RBC 0.0 10^3/ul Nucleated RBC % 0.0 ESR Pending Carbon Monoxide Screen <4.0 (<4.0) % Sodium 139 (135-145) mmol/L Potassium 4.3 (3.5-5.0) mmol/L Chloride 104 (101-111) mmol/L Carbon Dioxide 28 (22-32) mmol/L Anion Gap 7 (2-11) mmol/L BUN 20 (6-24) mg/dL Creatinine 0.83 (0.51-0.95) mg/dL Est GFR ( Amer) 86.7 (>60) Est GFR (Non-Af Amer) 71.6 (>60) BUN/Creatinine Ratio 24.1 H (8-20) Glucose 107 H (70-100) mg/dL Calcium 9.4 (8.6-10.3) mg/dL Total Bilirubin 0.30 (0.2-1.0) mg/dL AST 13 (13-39) U/L ALT 16 (7-52) U/L Alkaline Phosphatase 88 (34-104) U/L Total Protein 7.0 (6.4-8.9) g/dL Albumin 4.2 (3.2-5.2) g/dL Globulin 2.8 (2-4) g/dL Albumin/Globulin Ratio 1.5 (1-3) Result Diagrams: 01/28/19 16:06 01/28/19 16:06 Lab Statement: Any lab studies that have been ordered have been reviewed, and results considered in the medical decision making process. - Radiology Brain MRI Radiology Interpretation Completed By: Radiologist EENT Course/Dx - Course Course Of Treatment: This patient is a 53 year old female presenting to [facility] with a chief complaint of vision problems since 3 weeks ago. Differentials include complex migraine, pseudotumor cerebri, and venous sinus thrombus. Tried to contact Dr. Bryan 4 times, who sent her here. He was not available. Discussed with Dr. Pina, who's plan was not to attempt a lumbar puncture in the ED, but rather have interventional radiology do it with Anaestesiology. Patient will be signed-out to Dr. Knight pending Brain MRI reading. I discussed the case with Dr. Pina, he reviewed Dr. Bryan's note from the office. As the patient has had symptoms for 3 weeks, he did not feel that she needed emergent lumbar puncture tonight. The plan will be for Dr. Knight to communicate MRI findings with Dr. Pina, and lumbar puncture will be arranged for early next week as needed. - Diagnoses Provider Diagnoses: Right-sided headache, Transient visual loss Discharge - Sign-Out/Discharge Documenting (check all that apply): Sign-Out Patient Signing out patient TO: Denise Knight - At shift change 1900 Patient Received Moderate/Deep Sedation with Procedure: No - Discharge Plan Referrals: Crepet,Monse, MD [Primary Care Provider] - - Attestation Statements Document Initiated by Scribe: Yes Documenting Scribe: David Ford Provider For Whom Scribe is Documenting (Include Credential): Micheal Upton MD Scribe Attestation: IDavid, scribed for Micheal Upton MD on 01/28/19 at 1902. Status of Scribe Document: Viewed
[2019-01-28 17:38] LABS: Erythrocyte Sed Rate 12 mm/Hr (0-29)
[2019-01-28] MEDS ORDERED: Gadoteridol* (CONTRAST) 279.3 MG/ML 10 ML IV ONE (18:08)
--- NOTE | 2019-01-28 19:20 | ED ---
Progress - Progress Note Progress Note: Patient is received as a sign out from Dr. Upton at 1900 01/28/19 shift change pending Brain MRI results of this patient. Patient had been sent by Dr. Bryan to ED for evaluation of Sx. Patient has been experiencing BAUER with vision changes for around three weeks. Brain MRI to be resulted. 1933 - Dr. Steiner called with regards to the patient's case. He states that he has reviewed Brain MRI and notes no acute findings. Patient's case and further treatment were discussed. BRAIN MRI IMPRESSION: No acute findings. THIS REPORT WAS REVIEWED BY DR. ARIZA. 2051 - Dr. Steiner called with regards to the patient's MRV. MRV is still pending. 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 Congenital/acquired. THIS REPORT WAS REVIEWED BY DR. ARIZA 2107 - Patient's case was discussed with Dr. Pina. Dr. Pina will discuss the patient's case with Dr. Steiner and Dr. Bryan. 2130 - After discussion of patient's case by Dr. Pina, Dr. Bryan, and Jatin, Dr. Pina relays that the patient should be transferred to a higher level of care facility. It is believed that the patient might have pseudotumor cerebri, patient will need to have spinal tap done to test for opening CSF pressure. However, patient is noted to have herniated discs at T11-T12, and, per Dr. Pina, spinal tap will likely have to be done through neck. Diamox 500 mg PO ONCE ONE was also recommended, which will be given to patient. 2134 - Transfer was discussed with the patient. Patient will be transferred to [facility] in [place]. 2148 - Transfer Center was reached, initial report of patient's case was given to Pilar. 2233 - Patient's case was discussed with Dr. Arndt, neurologist, at [facility] in [place]. Patient will be transferred ED to ED with Dr. May accepting the patient to the ED of [facility]. Re-Evaluation - Re-Evaluation First Eval Re-Evaluation Time: 21:35 Change: Unchanged Comment: 2134 - Transfer was discussed with the patient. Patient will be transferred to [facility] in [place]. Course/Dx - Course Course Of Treatment: Patient is received as a sign out from Dr. Upton at 1900 shift change pending Brain MRI results of this patient. Patient had been sent by neurologist to ED for evaluation of Sx. Patient has been experiencing BAUER with vision changes for around three weeks. Brain MRI to be resulted. 1933 - Dr. Steiner called with regards to the patient's case. He states that he has reviewed Brain MRI and notes no acute findings. Patient's case and further treatment were discussed. BRAIN MRI IMPRESSION: No acute findings. THIS REPORT WAS REVIEWED BY DR. ARIZA. 2051 - Dr. Steiner called with regards to the patient's MRV. MRV is still pending. 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 Congenital/acquired. THIS REPORT WAS REVIEWED BY DR. ARIZA. 2107 - Patient's case was discussed with Dr. Pina. Dr. Pina will discuss the patient's case with Dr. Steiner and Dr. Bryan. 2130 - After discussion of patient's case by Dr. Pina, Dr. Bryan, and Jatin, Dr. Pina relays that the patient should be transferred to a higher level of care facility. It is believed that the patient might have pseudotumor cerebri, patient will need to have spinal tap done to test for opening CSF pressure. However, patient is noted to have herniated discs at T11- T12, and, per Dr. Pina, spinal tap will likely have to be done through neck. Diamox 500 mg PO ONCE ONE was also recommended, which will be given to patient. 2134 - Transfer was discussed with the patient. Patient will be transferred to [facility] in [place]. 2148 - Transfer Center was reached, initial report of patient's case was given to Pilar. 2233 - Patient's case was discussed with Dr. Arndt, neurologist, at [facility] in [place]. Patient will be transferred ED to ED with Dr. May accepting the patient to the ED of [facility]. - Diagnoses Provider Diagnoses: Headache - Provider Notifications Discussed Care Of Patient With: Ramone Stenier Time Discussed With Above Provider: 19:34 Instructed by Provider To: Other - 1933 - Dr. Steiner called with regards to the patient's case. He states that he has reviewed Brain MRI and notes no acute findings. Patient's case and further treatment were discussed. 2051 - Dr. Steiner called with regards to the patient's MRV. MRV is still pending. 2107 - Patient's case was discussed with Dr. Pina. Dr. Pina will discuss the patient' s case with Dr. Steiner and Dr. Bryan. 2130 - After discussion of patient 's case by Dr. Pina, Dr. Bryan, and Jatin, Dr. Pina relays that the patient should be transferred to a higher level of care facility. It is believed that the patient might have pseudotumor cerebri, patient will need to have spinal tap done to test for opening CSF pressure. However, patient is noted to have herniated discs at T11-T12, and, per Dr. Pina, spinal tap will likely have to be done through neck. Diamox 500 mg PO ONCE ONE was also recommended, which will be given to patient. Discharge - Sign-Out/Discharge Documenting (check all that apply): Patient Departure - transfer - Discharge Plan Condition: Good Disposition: TRANS HIGHER LVL OF CARE FAC Referrals: Monse Chahal MD [Primary Care Provider] - - Billing Disposition and Condition Condition: GOOD Disposition: Trans Higher Lvl of Care Fac - Attestation Statements Document Initiated by Michael: Yes Documenting Stuartibfelicia: OLLIE HUNTLEY Provider For Whom Michael is Documenting (Include Credential): CHRISS ARIZA MD Scribe Attestation: OLLIE Dominguez, scribed for CHRISS ARIZA MD on 01/28/19 at 2305. Scribe Documentation Reviewed: Yes Provider Attestation: The documentation as recorded by the OLLIE de leon accurately reflects the service I personally performed and the decisions made by , CHRISS ARIZA MD Status of Scribe Document: Viewed
[2019-01-28 20:26] LABS: Urine Appearance Cloudy; Urine Bilirubin Negative (Negative); Urine Blood Negative (Negative); Urine Color Yellow; Urine Glucose Negative (Negative); Urine Ketones Trace (Negative); Urine Nitrite Negative (Negative); Urine Protein Negative (Negative); Urine Specific Gravity 1.034 (1.010-1.030); Urine Urobilinogen Negative (Negative)
[2019-01-28] MEDS ORDERED: acetaZOLAMIDE TAB* 250 MG PO ONE (21:13)
[2019-01-28] MEDS ORDERED: acetaZOLAMIDE TAB* 250 MG ONE (21:49)
[2019-01-28 23:40] VITALS: BP 102/66
== END 2019-01-28 23:40 | disposition short-term general hospital (02) ==
LOC: ED 14:18
DX: R51 Headache (principal); H54.7 Unspecified visual loss; E03.9 Hypothyroidism, unspecified; E78.00 Pure hypercholesterolemia, unspecified; G47.30 Sleep apnea, unspecified; K21.9 Gastro-esophageal reflux disease without esophagitis; K58.9 Irritable bowel syndrome, unspecified; F32.9 Major depressive disorder, single episode, unspecified; Z87.891 Personal history of nicotine dependence
CPT/HCPCS: 36415; 70546; 70551; 80053; 81003; 82375; 85025; 85652; 99283; A9270-GY; A9579

== ENCOUNTER 2019-03-22 08:36 | Inpatient (IN) | payer OTHER ==
[~2019-03-22 08:36] MED LIST changes: -Buffered Lidocaine 0.9% SYRIN* 5 ML/SYR SYRINGE INTRADERM ONE; +Buffered Lidocaine 1% SYRIN* 1 ML/SYRINGE INTRADERM ONE; +Famotidine IV* 10 MG/ML 2 ML (20 mg) IV ONE; -Famotidine TAB* 20 MG PO ONE; +Lactated Ringers 1000 ML Bag* 1,000 ML IV SCH
--- OUTSIDE RECORDS SUMMARY | 2019-03-22 08:40 | XMS REPORT | Continuity of Care Document ---
:1965 External Reference #:[id number] Author Name Jennifer Stewart Care Team Providers Name Role Phone Monse Chahal MD Primary Care Physician Unavailable Payers Date Identification Numbers Payment Provider Subscriber Policy Number: [id number] [employer] Ashli Larkin PayID: [id number] [address] [place] [address] Problems Active Problems Provider Date Lumbar spondylolisthesis [...] Cancer Father Hypertension Mother No Current Problems Siblings 2 sister no current problems Brother- from Non hodgkins lymphoma Social History Type Date Description Comments Sex Unknown 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 Hand Dominance Right-handed ETOH Use Denies alcohol use Tobacco Use Start: Unknown End: Patient is a former quit over 10 years Unknown smoker ago Recreational Drug Use Denies Drug Use Smoking Status Reviewed: 03/07/19 Patient is a former quit over 10 years smoker ago Exercise Type/Frequency Does not exercise Allergies, Adverse Reactions, Alerts Active Allergies Reaction Severity Comments Date Codeine Nausea and Vomiting 11/03/2017 Medications Active Medications SIG Qnty Indications Ordering Provider Date Ibuprofen 200 400-600mg every 6 Kulwinder Eldridgeffney, 02/11/2019 200mg Tablets hours as needed M.D. for pain. Genteal Tears Liquid Apply one drop to 30ml G93.2 Kulwinder Cotton Irvin, 2018 Drops Moderate each eye as M.D. 0.1-0.2-0.3% needed for dry Solution eyes. Tylenol Extra Strength 1-2 tabs by mouth Unknown every 6 hours as 500mg Tablets needed Multi Vitamin/Minerals once a day by Unknown Full Spectrum mouth Tablets [facility] Vitamin B-12 1 by mouth every Unknown 1000mcg day Tablets Acetazolamide 3 tabs twice a Unknown 250mg Tablets day Pantoprazole Sodium 1-4 tabs per day Unknown 40mg as needed Tablets DR Tramadol HCL take 1 tablet by Unknown 50mg Tablets mouth every 4 to 6 hours if needed for pain Levothyroxine Sodium 1 by mouth every Unknown 100mcg day Tablets Fluoxetine HCL 1 by mouth every Unknown 20mg day Capsules Atorvastatin Calcium take 1 tablet at Unknown 20mg bedtime Tablets History Medications Clobetasol Propionate apply twice daily to Unknown - 2017 0.05% affected area. use for Solution two weeks and then stop. Diclofenac Sodium take 1 tablet twice a Unknown - 11/03/[address] day with food Esomeprazole Magnesium 1 by mouth every day Unknown - [address] Gabapentin 1 by mouth three times Unknown [...] Depomedrol 40MG Moira Walker M.D. 04/19/2018 Injection Vital Signs Date Vital Result Comment 03/07/2019 3:21pm Height 68 inches 5'8" Weight 273.00 lb BP Systolic Sitting 110 mmHg BP Diastolic Sitting 88 mmHg Pain Level 5 BMI (Body Mass Index) 41.5 kg/m2 02/25/2019 2:18pm Height 68 inches 5'8" Weight 273.38 lb Heart Rate 98 /min BP Systolic Sitting 110 mmHg BP Diastolic Sitting 86 mmHg O2 % BldC Oximetry 96 % BMI (Body Mass Index) 41.6 kg/m2 02/18/2019 3:36pm Height 68 inches 5'8" Weight 277.00 lb Heart Rate 98 /min BP Systolic 132 mmHg BP Diastolic 86 mmHg BMI (Body Mass Index) 42.1 kg/m2 02/11/2019 11:11am Height 68 inches 5'8" Weight 283.00 lb Heart Rate 87 /min BP Systolic Sitting 120 mmHg BP Diastolic Sitting 82 mmHg O2 % BldC Oximetry 95 % BMI (Body Mass Index) 43.0 kg/m2 02/01/2019 2:55pm Height 68 inches 5'8" Weight 280.00 lb Heart Rate 90 /min BP Systolic 142 mmHg BP Diastolic 88 mmHg BMI (Body Mass Index) 42.6 kg/m2 01/28/2019 1:43pm Height 68 inches 5'8" Weight 285.00 lb Heart Rate 94 /min BP Systolic 134 mmHg BP Diastolic 86 mmHg BMI (Body Mass Index) 43.3 kg/m2 01/26/2019 8:17am Height 68 inches 5'8" Weight [...] Result H/L Range Note Basic Metabolic 01/01/2018 [facility] Sodium 140 mmol/L N 139- [address] [place] [address] [phone] Potassium 4.5 mmol/L N 3.5-5.0 Chloride 104 mmol/L N 101-111 Co2 Carbon Dioxide 28 mmol/L N 22-32 Anion Gap 8 mmol/L N 2-11 Glucose 103 mg/dL High 70-100 Blood Urea Nitrogen 16 mg/dL N 6-24 Creatinine 0.78 mg/dL N 0.51-0.95 BUN/Creatinine Ratio 20.5 High 8-20 Calcium 8.6 mg/dL N 8.6-10.3 Egfr Non- 77.3 >60 Egfr 99.4 >60 1 Laboratory test 12/31/2017 [facility] TSH (Thyroid 1.37 mcIU/mL N 0.34-5.[address] Stim [place]) [place] [address] [phone] Type & Screen 12/31/2017 [facility] Patient [place] [address] [phone] Antibody Screen NEGATIVE Urinalysis Profile 12/31/2017 [facility] [place] [address] [phone] Urine Appearance Clear Urine Specific [place] 1.025 N 1.010-1.030 Urine pH 5.0 N 5-9 Urine Urobilinogen Negative Negative Urine Ketones Negative Negative Urine Protein Negative Negative Urine Leukocytes Negative Negative Urine Blood Negative Negative Urine Nitrite Negative Negative Urine Bilirubin Negative Negative Urine Glucose Negative Negative Laboratory test 12/31/2017 [facility] Partial 32.6 seconds N 26.0-36.[address] [facility] [place] [address] PTT [phone] Inr/Protime 12/31/2017 [facility] Inr 0.86 N 0.77-1.[address] [place] [address] [phone] CBC No Diff 12/31/2017 [facility] White Blood 6.8 10^3/uL N 3.5-10.[address] [place] [address] [phone] Red Blood Count 5.33 10^6/uL N 4.0-5.4 [...] 04/19/2018 Injection Single Tendon Origin/Insertion Completed 01/07/2018 31953 Driver/Facet/Foraminotomy;Vertebral Segment; Lumbar Completed 01/07/2018 49202 Driver/Facet/Foraminotomy;Vertebral Segment; Lumbar Completed 01/07/2018 35201 Stereotactic Computer-Assisted, Spinal Completed 01/07/2018 25727 Insertion Interbody Biomechanical Device; Each Interspace Completed 01/07/2018 26410 Insertion Interbody Biomechanical Device; Each Interspace Completed 01/07/201864802 Non-Segmental Instrumentation Posterior 1 Interspace Completed 01/07/201814333 Non-Segmental Instrumentation Posterior 1 Interspace Completed 01/07/201872437 Arthrodesis Posterior Interbody Technique Completed 01/07/2018 Arthrodesis Posterior Interbody Technique Completed 01/07/2018 Autograft For Spine Surgery, Morselized Completed 01/07/2018 Allograft For Spine Surgery, Morselized Completed Encounters Type Date Location Provider Dx Diagnosis Office Visit 02/18/2019 [facility] Kulwinder Carrera.2 Benign 3:30p Kateryna Bryan intracranial hypertension H47.11 Papilledema associated with increased intracranial 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 intracranial hypertension H47.11 Papilledema associated with increased intracranial pressure Office Visit 02/01/2019 3:00p [facility] Kulwinder Cotton G93.2 Benign Services Of Romie Bryan M.D. 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, thoracic region Office 12/10/2018 [facility] M47.26 Other spondylosis Visit 8:30a Services Of Romie Steiner MD with [...] other specified surgical aftercare Office 06/14/2018 Neurosurgery [facility] M48.061 Spinal stenosis, Visit 2:30p Services Of [...] (BMI) 39.0-39.9, adult Office Visit 04/12/2018 [facility] Z48.89 Encounter for 2:00p Services Of Romie Steiner MD other specified surgical aftercare E66.8 Other obesity M25.551 Pain in right hip M25.552 Pain in left hip Office 11/03/2017 [facility] M43.16 Spondylolisthesis, Visit 9:30a Services Of Romie Steiner MD lumbar region M47.26 Other spondylosis with radiculopathy, lumbar region E66.8 Other obesity Plan of Treatment 03/07/2019 - Ramone Steiner, MDM51.24 Other intervertebral disc displacement, thoracic regionFollow up:Rv one week, one month, three months postop.M51.04 Intervertebral disc disorders w myelopathy, thoracic region
--- OUTSIDE RECORDS SUMMARY | 2019-03-22 08:40 | XMS REPORT | Continuity of Care Document ---
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 Tablets needed for pain. Genteal Tears Liquid Apply one drop 30ml G93.2 Kulwinder Eldridgeffney, 2018 Drops Moderate to each eye as M.D. needed for dry 0.1-0.2-0.3% Solution eyes. Tylenol Extra Strength 1-2 tabs by Unknown mouth every 6 500mg Tablets hours as needed Multi Vitamin/Minerals once a day by Unknown Full Spectrum mouth Tablets [facility] Vitamin B-12 1 by mouth every Unknown 1000mcg day Tablets Acetazolamide 3 tabs twice a 30tabs Kulwinder Eldridgeffney, 250mg day M.D. Tablets Pantoprazole Sodium 1-4 tabs per day Unknown 40mg as needed Tablets DR Tramadol HCL take 1 tablet by Unknown 50mg Tablets mouth 3x a day Levothyroxine Sodium 1 by mouth every Unknown day 100mcg Tablets Fluoxetine HCL 1 by mouth every [...] Injection Vital Signs Date Vital Result Comment 03/11/2019 3:16pm Height 68 inches 5'8" Weight 268.00 lb Heart Rate 89 /min BP Systolic 118 mmHg BP Diastolic 86 mmHg BMI (Body Mass Index) 40.7 kg/m2 03/07/2019 3:21pm Height 68 inches 5'8" Weight [...] Result H/L Range Note Basic Metabolic 01/01/2018 [facility] Sodium 140 mmol/L N 139- 145 Panel [facility] [place] [address] [phone] Potassium 4.5 mmol/L N 3.5-5.0 Chloride 104 mmol/L N 101-111 Co2 Carbon Dioxide 28 mmol/L N 22-32 Anion Gap 8 mmol/L N 2-11 Glucose 103 mg/dL High 70-100 Blood Urea Nitrogen 16 mg/dL N 6-24 Creatinine 0.78 mg/dL N 0.51-0.95 BUN/Creatinine Ratio 20.5 High 8-20 Calcium 8.6 mg/dL N 8.6-10.3 Egfr Non- 77.3 >60 Egfr 99.4 >60 1 Laboratory test 12/31/2017 [facility] TSH (Thyroid 1.37 mcIU/mL N 0.34-5.60 finding [facility] Stim Horm) [place] [address] [phone] Type & Screen 12/31/2017 [facility] Patient Blood O Positive [address] [place] [address] [place] [address] [phone] Antibody Screen NEGATIVE Urinalysis Profile 12/31/2017 [facility] Urine Color Yellow [address] [place] [address] [phone] Urine Appearance Clear Urine Specific [place] 1.025 N 1.010-1.030 Urine pH 5.0 N 5-9 Urine Urobilinogen Negative Negative Urine Ketones Negative Negative Urine Protein Negative Negative Urine Leukocytes Negative Negative Urine Blood Negative Negative Urine Nitrite Negative Negative Urine Bilirubin Negative Negative Urine Glucose Negative Negative Laboratory test 12/31/2017 [facility] Partial 32.6 seconds N 26.0-36.[address] [place] [address] PTT [phone] Inr/Protime 12/31/2017 [facility] Inr 0.86 N 0.77-1.[address] [place] [address] [phone] CBC No Diff 12/31/2017 [facility] White Blood 6.8 10^3/uL N 3.5-10.[address] [place] [address] [phone] Red Blood Count 5.33 10^6/uL N 4.0-5.4 [...] 04/19/2018 Injection Single Tendon Origin/Insertion Completed 01/07/2018 93049 Driver/Facet/Foraminotomy;Vertebral Segment; Lumbar Completed 01/07/2018 50196 Driver/Facet/Foraminotomy;Vertebral Segment; Lumbar Completed 01/07/2018 66902 Stereotactic Computer-Assisted, Spinal Completed 01/07/2018 71825 Insertion Interbody Biomechanical Device; Each Interspace Completed 01/07/2018 63032 Insertion Interbody Biomechanical Device; Each Interspace Completed 01/07/2018 11706 Non-Segmental Instrumentation Posterior 1 Interspace Completed 01/07/201832008 Non-Segmental Instrumentation Posterior 1 Interspace Completed 01/07/201896838 Arthrodesis Posterior Interbody Technique Completed 01/07/201843474 Arthrodesis Posterior Interbody Technique Completed 01/07/201855009 Autograft For Spine Surgery, Morselized Completed 01/07/2018 Allograft For Spine Surgery, Morselized Completed Encounters Type Date Location Provider Dx Diagnosis Office Visit 02/18/2019 [facility] Kulwinder Castillo3.2 Benign 3:30p Kateryna Bryan intracranial hypertension H47.11 Papilledema associated with increased intracranial 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 intracranial hypertension H47.11 Papilledema associated with increased intracranial pressure Office Visit 02/01/2019 3:00p [facility] Kulwinder Castillo3.2 Benign [facility] Romie Bryan M.D. intracranial [...] E66.8 Other obesity Plan of Treatment Future Appointment(s):06/03/2019 2:45 pm - [facility] - Kulwinder Bryan M.D.G93.2 Benign intracranial hypertensionFollow up:2-3 monthsRecommendations:after shunt is in you can decrease diamox to 500 mg twice a day for 3 days then 250 mg twice a day for 3 days then 250 mg once a day for 3 days, then stop gjlgrdE52.11 Papilledema associated with increased intracranial paakxiqrK16.24 Other intervertebral disc displacement, thoracic region
--- OUTSIDE RECORDS SUMMARY | 2019-03-22 08:41 | XMS REPORT | Continuity of Care Document ---
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 Sodium 140 mmol/L N 139- [address] [place] [address] [phone] Potassium 4.5 mmol/L N 3.5-5.0 Chloride 104 mmol/L N 101-111 Co2 Carbon Dioxide 28 mmol/L N 22-32 Anion Gap 8 mmol/L N 2-11 Glucose 103 mg/dL High 70-100 Blood Urea Nitrogen 16 mg/dL N 6-24 Creatinine 0.78 mg/dL N 0.51-0.95 BUN/Creatinine Ratio 20.5 High 8-20 Calcium 8.6 mg/dL N 8.6-10.3 Egfr Non- 77.3 >60 Egfr 99.4 >60 1 Laboratory test 12/31/2017 [facility] TSH (Thyroid 1.37 mcIU/mL N 0.34-5.[address] Stim Horm) [place] [address] [phone] Type & Screen 12/31/2017 [facility] Patient Blood O Positive [facility] [place] [address] [phone] Antibody Screen NEGATIVE Urinalysis Profile 12/31/2017 [facility] Urine Color Yellow [facility] [place] [address] [phone] Urine Appearance Clear Urine Specific [place] 1.025 N 1.010-1.030 Urine pH 5.0 N 5-9 Urine Urobilinogen Negative Negative Urine Ketones Negative Negative Urine Protein Negative Negative Urine Leukocytes Negative Negative Urine Blood Negative Negative Urine Nitrite Negative Negative Urine Bilirubin Negative Negative Urine Glucose Negative Negative Laboratory test 12/31/2017 [facility] Partial 32.6 seconds N 26.0-36.[address] [place] [address] PTT [phone] Inr/Protime 12/31/2017 [facility] Inr 0.86 N 0.77-1.02 [place] [address] [phone] CBC No Diff 12/31/2017 [facility] White Blood 6.8 10^3/uL N 3.5-10.[address] [place] [address] [phone] Red Blood Count 5.33 10^6/uL N 4.0-5.4 [...] 04/19/2018 Injection Single Tendon Origin/Insertion Completed 01/07/2018 47517 Driver/Facet/Foraminotomy;Vertebral Segment; Lumbar Completed 01/07/2018 61495 Driver/Facet/Foraminotomy;Vertebral Segment; Lumbar Completed 01/07/2018 44390 Stereotactic Computer-Assisted, Spinal Completed 01/07/2018 21785 Insertion Interbody Biomechanical Device; Each Interspace Completed 01/07/2018 23549 Insertion Interbody Biomechanical Device; Each Interspace Completed 01/07/2018 Non-Segmental Instrumentation Posterior 1 Interspace Completed 01/07/2018 Non-Segmental Instrumentation Posterior 1 Interspace Completed 01/07/2018 Arthrodesis Posterior Interbody Technique Completed 01/07/2018 Arthrodesis [...] Visit 02/11/2019 [facility] Kulwinder Castillo3.2 Benign 11:15a Clinic Kateryna Bryan intracranial hypertension H47.11 Papilledema associated with increased intracranial pressure Office Visit 02/01/2019 3:00p [facility] Kulwinder Cotton G93.2 Benign Services Of Romie Bryan M.D. 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 intracranial hypertension [...] Other spondylosis Visit 8:30a Services Of Romie Setiner MD with radiculopathy, lumbar region M51.36 Other [...] hip Office Visit 04/19/2018 9:45a [facility] Moirabrian Walker, M25.551 Pain in right Of C.[facility].A. [...] Pain in left hip Office 11/03/2017 [facility] M43.16 Spondylolisthesis, Visit 9:30a Services Of Romie Steiner MD lumbar region M47.26 Other spondylosis with radiculopathy, lumbar region E66.8 Other obesity Plan of Treatment Future Appointment(s):03/14/2019 1:30 pm - Kulwinder Bryan M.D. at [facility]03/28/2019 1:00 pm - Ramone Steiner MD at [facility]02/25/2019 - Kulwinder Bryan M.D.G93.2 Benign intracranial dscmmamixqkjP78.11 Papilledema associated with increased intracranial pressureFollow up:2 - 4 KRYOYI05.24 Other intervertebral disc displacement, thoracic regionRecommendations:I think it is OK to go ahead with your thoracic spine surgery, I will contact Dr. Toro
[2019-03-22] MEDS ORDERED: ceFAZolin 2 GM in NS PREMIX(*) 2 GM/100 ML BAG IVPB ONE (10:45)
[2019-03-22] MEDS ORDERED: Famotidine IV* 10 MG/ML 2 ML (20 mg) ONE (10:45)
[2019-03-22] MEDS ORDERED: Ondansetron INJ* 2 MG/ML VIAL ONE (10:54)
[2019-03-22] MEDS ORDERED: Phenylephrine 10 MG/ML VIAL* 1 ML VIAL ONE (10:54)
[2019-03-22] MEDS ORDERED: Midazolam* 1 MG/ML 5 ML VIAL (5 MG) ONE (10:54)
[2019-03-22] MEDS ORDERED: Lidocaine 2% PF * 5 ML VIAL ONE ×2 (10:54→12:35)
[2019-03-22] MEDS ORDERED: fentaNYL* 50 MCG/ML 2 ML VIAL (100 MCG VIAL) ONE ×3 (10:54→16:34)
[2019-03-22] MEDS ORDERED: Cisatracurium* 2 MG/ML MDV 5 ML ONE (10:54)
[2019-03-22] MEDS ORDERED: Propofol* 10 MG/ML 20 ML BTL ONE ×2 (10:54→13:57)
[2019-03-22] MEDS ORDERED: Dexamethasone IV* 4 MG/ML 1 ML (4 MG) ONE (10:54)
[2019-03-22] MEDS ORDERED: Propofol* 500 MG/50 ML BTL ONE ×2 (11:03→11:57)
[2019-03-22] MEDS ORDERED: Remifentanil* 2 MG VIAL ONE ×2 (11:57→14:13)
[2019-03-22] MEDS ORDERED: Artificial Tear OPHTH.OINT* 3.5 GM ONE (11:57)
[2019-03-22] MEDS ORDERED: Bupivacaine 0.25% SDV PF* 10 ML VIAL INJ ONE (12:14)
[2019-03-22] MEDS ORDERED: Bacitracin INJECTION* 50,000 UNITS ONE (12:16)
[2019-03-22] MEDS ORDERED: Thrombin 5,000 UNITS* 1 APPLIC KIT - topical use - TOPICAL ONE (12:16)
[2019-03-22] MEDS ORDERED: Lidocaine 1% w EPI 1:100,000* 30 ML VIAL ONE (12:16)
[2019-03-22] MEDS ORDERED: Bupivacaine 0.25% W/EPI* 10 ML SDV ONE (12:26)
[2019-03-22] MEDS ORDERED: ceFAZolin 1 GM ADVAN(*) 1 GM ADDV.VIAL IVPB ONE (12:33)
[2019-03-22] MEDS ORDERED: Bupivacaine 0.5% W/EPI SDV* 30 ML VIAL ONE (12:41)
--- NOTE | 2019-03-22 12:51 | PN ---
Progress Note - Progress Note Date of Service: 03/22/19 Note: General Surgery Progress Note Patient is a 54 yo F with morbid obesity and pseudotumor cerebri who is undergoing CHIEF LEGAL OFFICER shunt placement with Dr. Steiner today. He has asked General Surgery for laparoscopic assistance with placement of the intraperitoneal portion of the CHIEF LEGAL OFFICER shunt, given the patient's morbid obesity. I discussed with the patient the procedure and the risks, benefits and alternatives. Risks include but are not limited to bleeding, infection, injury to nearby structures such as the small bowel, colon, stomach and other structures. She understands and wishes to proceed.
[2019-03-22] MEDS ORDERED: EPHEDrine (Pressors)* 50 MG/ML VIAL ONE (13:57)
[2019-03-22] MEDS ORDERED: Neostigmine Methylsulfate* 1 MG/ML 10 ML VIAL (1 mg/ml) ONE (16:06)
[2019-03-22] MEDS ORDERED: Glycopyrrolate IV* 0.2 MG/ML 1 ML VIAL ONE (16:06)
[2019-03-22] MEDS ORDERED: Ondansetron INJ* 2 MG/ML VIAL IV PRN (16:34)
[2019-03-22] MEDS ORDERED: Naloxone* 0.4 MG/ML 1 ML VIAL IV PRN (16:34)
[2019-03-22] MEDS ORDERED: HYDROmorphone INJ1* 1 MG/ML SYRINGE IV PRN (16:34)
[2019-03-22] MEDS: fentaNYL* 50 MCG/ML 2 ML VIAL (100 MCG VIAL) IV PRN ×2 (16:37→16:56)
[2019-03-22] MEDS ORDERED: Magnesium Hydroxide LIQ* 30 ML UDC PO PRN (16:40)
[2019-03-22] MEDS ORDERED: Lactated Ringers 1000 ML Bag* 1,000 ML IV SCH (17:00)
--- NOTE | 2019-03-22 19:10 | OP ---
CC: Dr. Steiner * DATE OF OPERATION: 03/22/19 - ROOM #ICU-09 DATE OF : 63 SERVICE: General Surgery. SURGEON: Jacqui Posada MD CO-SURGEON: Dr. Steiner DE ALCOHOLIZER: None. ANESTHESIOLOGIST: Dr. Wade Albert. ANESTHESIA: General endotracheal anesthesia. PRE-OP DIAGNOSIS: Pseudotumor cerebri. POST-OP DIAGNOSIS: Pseudotumor cerebri. OPERATIVE PROCEDURE: Laparoscopic-assisted intraperitoneal placement of a AGRICULTURAL EQUIPMENT OPERATOR shunt. INDICATIONS FOR SURGERY: Ms. Larkin is a 54-year-old female with a history of pseudotumor cerebri who required a AGRICULTURAL EQUIPMENT OPERATOR shunt. Dr. Steiner requested assistance with intraperitoneal placement of the AGRICULTURAL EQUIPMENT OPERATOR shunt given that the patient is morbidly obese. Informed consent was obtained from the patient. She understood the risks, benefits, and alternatives of the procedure and she wished to proceed. DESCRIPTION OF PROCEDURE: I was called into the operating room after Dr. Steiner had placed the AGRICULTURAL EQUIPMENT OPERATOR shunt from the cranial end and had tunneled it subcutaneously to the abdominal wall in the right upper quadrant. At the time when the patient was ready to have the intraperitoneal portion placed, a second time-out was performed verifying the patient's name, MR number, and the procedure to be performed. 0.25% Marcaine was infiltrated into the left upper quadrant at Schaeffer's point and an incision was made using 11-blade through the skin and through subcutaneous tissue. Next, an Optiview trocar was used to enter the abdomen under direct visualization. All layers of the abdominal wall were visualized. Once the trocar was in the abdominal cavity, insufflation was obtained to 15 mmHg. A 5-0 laparoscope was placed into the abdominal cavity and upon general inspection of the abdominal cavity, no apparent injury had been made upon entry. Next, under direct visualization, Dr. Steiner placed an angiocatheter needle into the abdominal cavity at the location where the tunneled AGRICULTURAL EQUIPMENT OPERATOR shunt exited the skin. Over the angiocatheter, a wire was placed and then a Peel-Away sheath was placed over the wire. The wire and introducer were then removed and the AGRICULTURAL EQUIPMENT OPERATOR shunt distal end was placed through the Peel-Away sheath into the intraabdominal cavity under direct visualization. After it was completely placed intraperitoneally, the Peel-Away sheath was then removed and inspection of the AGRICULTURAL EQUIPMENT OPERATOR shunt showed that it was placed well in the intraperitoneal cavity with no kinking, and Dr. Steiner tested the cranial end and ensured that there was cerebrospinal fluid flowed freely through the catheter into the intraperitoneal cavity. Once this was done, desufflation was obtained. The 5-mm trocar was removed under direct visualization and the 5-mm port site that had been placed was closed using 4-[address] Steiner had previously made a small incision at the location where the catheter was entered into the abdominal cavity and this was closed using interrupted 4-0 Monocryl sutures. Sterile dressing was placed using skin glue and at this point of the procedure, my portion was completed and Dr. Steiner continued to close the cranial sites. At this point, I left the operating room and Dr. Steiner completed his portion of the procedure. [id number]/CPS #: [id number] MTDD
[2019-03-22] MEDS: Morphine INJ* 2 MG/ML 1 ML SYRINGE (TWO MG - NEW SYRINGE VERSION) IV PRN ×3 (19:17→22:35)
[2019-03-22] MEDS: HYDROcodone/ACETAMIN 5-325 MG* 1 TAB PO PRN (20:08)
[2019-03-22] MEDS ORDERED: Labetalol IV* 5 MG/ML 20 ML VIAL IV PRN (21:25)
[2019-03-22] MEDS: Atorvastatin* 20 MG TAB PO SCH (21:28)
[2019-03-22] MEDS: acetaZOLAMIDE TAB* 250 MG PO SCH (21:28)
[2019-03-22] MEDS: Acetaminophen TAB* 325 MG PO SCH (21:28)
--- NOTE | 2019-03-22 22:07 | OP ---
CC: Dr. Jacqui Posada * DATE OF OPERATION: 03/22/19 - ROOM #ICU-09 DATE OF : 63 SURGEON: Ramone Steiner MD. CO-SURGEON: Dr. Jacqui Posada, General Surgery. BONDING MACHINE SETTER: AUSTIN Jordan. The case was done with assistance of a second attending and a surgical PA because of the complexity of the case. ANESTHESIA: General. PRE-OP DIAGNOSIS: Pseudotumor cerebri. POST-OP DIAGNOSIS: Pseudotumor cerebri. OPERATIVE PROCEDURE: The patient underwent a right frontal VICE CHAIRMAN shunt with AxiEM navigation and endoscopic placement of the peritoneal catheter. ESTIMATED BLOOD LOSS: 25 cc. COMPLICATIONS: None. INDICATIONS: The patient is a very pleasant 54-year-old female who has a history of a previous L3-4 TLIF. 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 Prior to plan for surgical intervention, the patient developed visual changes and was diagnosed by Dr. Bryan with pseudotumor cerebri. The patient had a lumbar puncture in [facility], which confirmed increased opening pressure and she was started on Diamox. The patient was offered the option of surgical intervention in the form of a VICE CHAIRMAN shunt. The patient failed conservative treatment modalities and after explaining expectations, limitations and possible complications of the procedure to the patient and her family including her mother and her son with complications including but not limited to bleeding, infection, risk of injury to adjacent structures, coma, paralysis, , need for additional procedure, anesthesia risks, stroke, blindness, cancer, instability, hardware failure, infection, some malfunction, discontinuation, ileus, injury to intra-abdominal or intrathoracic contents, intracranial hemorrhage, over shunting, under shunting, development of subdural hematomas, need for frequent revisions, loss of vision, anesthesia risk, the patient was agreeable to proceed with surgery. Informed consent was obtained. The patient understood that her condition may not improve, in fact may get worse after surgery and that she may need to have additional procedure in the future. The patient understood that the operative plan may be modified according to intraoperative findings and conditions and that the procedure may be abandoned or done in more than 1 stage. The patient understood that she may need to have prolonged ICU stay and prolonged hospitalization and prolonged rehabilitation and that she may need to have several additional procedures in the future. DESCRIPTION OF PROCEDURE: The patient was brought to the operating room and was placed under general anesthesia by the anesthesia team. She was carefully positioned supine on the operative table and her right shoulder was gently elevated. Her head was positioned in a donut kiln head house operator and slightly turned toward the left. The patient's head was registered with the preoperative stereotactic Stealth CT scanner with use of the BIO-NEMS navigation system. The insertion site was marked on the skin as well as hemicircular skin incision on the right frontal area in the Wendy point as well as a liner skin incision at the right postauricular small area. Also, Dr. Posada marked the abdominal incision site for insertion of the endoscope. The skin was prepped in a standard fashion. After appropriate surgical pause and patient identification, the skin incision sites were infiltrated with local anesthetic and a #10 surgical blade was used to incise the skin. The incision was carried down to the subcutaneous tissue with use of Bovie cautery. A small amount of periosteum was left in order to help securing the shunt ventricular catheter in later point. The second incision on the postauricular area was also performed with a #10 surgical blade and the incision was carried down to periosteum. Self -retaining retractors were then introduced in the field and then a high speed drill was used to perform a frontal dusty hole at the site of the insertion. Strata Medtronic programmable valve was used for the shunt, which was connected to the distal peritoneal catheter and secured in place with 2-0 ties. The skin was tunneled between the right frontal and right postauricular incision and the peritoneal catheter was passed. The valve was placed in the expected position and a shunt tunneler was used to tunnel the subcutaneous tissue all the way to the right upper quadrant. A small incision was performed at the end of the shunt tunneler and the distal catheter was tunneled under the skin to the abdominal incision. Then, attention was directed to insert the ventricular catheter. The ventricular catheter depth was set at 5.5 cm and with the use of the FeedjitEM navigation system, the ventricular catheter was inserted. With the first pass, free flow of CSF was obtained. This was secured in place and then a right angle plastic clip was used to give the ventricular catheter the angle needed. The ventricular catheter was then inserted into the proximal end of the Strata valve and secured in place with 2-0 ties. Free flow of CSF was checked at the end of the peritoneal catheter and the wounds were then covered with sterile dressings and antibiotic solution. Then, Dr. Posada came in to perform the endoscopic part of the procedure, details of which will be dictated by Dr. Posada in a separate dictation. In short, a 5 mm trocar was inserted in the left abdominal valve and endoscope was then inserted after dilation of the peritoneal cavity; and under direct visualization, a peel-away sheath was introduced into the abdominal cavity using the Seldinger technique. Through this sheath, the distal catheter was inserted into the peritoneal cavity and the peel- away sheath was gently removed. Under the direct visualization, the course of the intraabdominal catheter was checked and the end of the catheter was found to have a free flow of CSF. Then the wounds were copiously irrigated and after confirmation of meticulous hemostasis and meticulous inspection, all wounds were closed by layers. Dr. Posada performed the closure of the abdominal incisions , details of which would be dictated by Dr. Posada. Dermabond was used for covering the skin for the abdominal incisions, interrupted Vicryl sutures were used to approximate the subcutaneous tissue and for the cranial wounds cristian were used to approximate the skin. The sutures were then covered with sterile dressing and at the end of the procedure, all counts were reported to be correct. The patient remained hemodynamically stable throughout the case and at the end of the procedure, she was extubated and was transferred to Recovery in excellent condition, moving all extremities well and being oriented x3. The case was done with the assistance of general surgeon attending and surgical PA because of the complexity of the case. [id number] #: [id number] YADIRA
[2019-03-23] MEDS: HYDROcodone/ACETAMIN 5-325 MG* 1 TAB PO PRN ×2 (00:02→07:54)
[2019-03-23] MEDS: Acetaminophen TAB* 325 MG PO SCH ×4 (01:58→14:48)
[2019-03-23] MEDS: Morphine INJ* 2 MG/ML 1 ML SYRINGE (TWO MG - NEW SYRINGE VERSION) IV PRN ×2 (02:03→06:09)
--- NOTE | 2019-03-23 02:06 | CONS ---
HOSPITAL MEDICINE CONSULTATION REPORT: DATE OF CONSULT: 03/22/19 PROVIDER: Renita Trevino NP. ATTENDING PHYSICIAN WHILE IN THE HOSPITAL: Dr. Steiner. CONSULTING PHYSICIAN: Merlin Osborn MD (dictated by Renita Trevino NP). REASON FOR CONSULT: Management of systolic blood pressure. HISTORY OF PRESENT ILLNESS: Ms. Larkin is a 54-year-old female with a history of hypothyroid, chronic back pain, hyperlipidemia, morbid obesity, obstructive sleep apnea, and pseudotumor cerebri, who presented [place] [facility] BARREL LATHE OPERATOR OUTSIDE shunt placement with Dr. Steiner. For complete details, please see dictated H and P from Dr. Steiner in the immediate postoperative period. The patient has no complaints and she does complain of a mild sore throat and dry mouth as well as mild headache rated at a 2. Denies any recent illnesses. Denies any fever, chills, unintended weight loss, chest pain or edema, cough, hemoptysis, or shortness of breath. Denies any vomiting, diarrhea, or abdominal pain. She does complain of some nausea associated with her headaches at times. No current nausea. Denies any hematuria, dysuria, focal weakness or sensory loss, dysphagia, arthrosis, myalgias, rashes, lesions, or open sores. Denies any psychosis or anxiety. The patient underwent BARREL LATHE OPERATOR OUTSIDE shunt placement today. We were asked to by Neurosurgery to help co-manage the patient's systolic blood pressure. Neurosurgery has recommended that the patient's systolic blood pressure remain under 140, was the reason for requesting our consultation. PAST MEDICAL HISTORY: Significant for: 1. Obstructive sleep apnea. 2. Hypothyroidism. 3. History of back pain. 4. Hyperlipidemia. 5. Pseudotumor cerebri. PAST SURGICAL HISTORY: HOME MEDICATIONS: Include: 1. Tramadol 50 mg p.o. t.i.d. p.r.n. 2. Acetazolamide 3 tablets p.o. b.i.d. 3. Pantoprazole 40 mg p.o. daily. 4. Multivitamin 1 tablet p.o. daily. 5. Levothyroxine 100 mcg p.o. daily. 6. Ibuprofen 1 to 3 tablets every q.6 hours as needed for pain. 7. Fluoxetine 20 mg p.o. daily. 8. GenTeal Tears 1 drop to both eyes 4 times a day. 9. Vitamin B12 of 1000 mcg p.o. daily. 10. Atorvastatin 20 mg p.o. at bedtime. 11. Acetaminophen 500 mg p.o. q.4 hours as needed for pain. ALLERGIES: CODEINE. FAMILY HISTORY: Father with a history of hypertension and bone cancer, at the age 51. Grandmother with diabetes. Brother with non-Hodgkin lymphoma, at the age of 49. SOCIAL HISTORY: The patient denies any tobacco, alcohol or illicit drug use. Surrogate decision maker in the event she is unable to make her own decisions is her son, Alan. She is a full code. REVIEW OF SYSTEMS: An 11-point review of systems was completed. All pertinent positives are as mentioned in the HPI. PHYSICAL EXAMINATION: General: At this time, Ms. Larkin is a 54-year-old female. She is alert and oriented, resting in her hospital bed. She is in no acute distress. HEENT: Head is atraumatic, normocephalic. She does have a shaved area noted to the right side of her head from surgery. Eyes: EOMs are intact. Sclerae anicteric and not pale. Oral mucosa appeared to be moist. Neck: Supple. Lungs are clear with crackles in the bases bilaterally. Respirations are easy and even. Cardiac: S1, S2, regular rate and rhythm. No murmurs, rubs or gallops. Abdomen: Obese, soft and nontender. Bowel sounds are present x4. Musculoskeletal: The patient does not have any clubbing or cyanosis. Pedal pulses are +2 bilaterally. She is able to move all 4 extremities with 5/5 strength. Skin: She does have no open rashes or lesions. Neurologic: She is awake, alert, oriented x3. Speech is clear. Thought process intact. There is no gross focal deficits. LABORATORY DATA AND DIAGNOSTIC STUDIES: CBC from 03/17/19, WBC is 9.8, RBC is 5.75, hemoglobin 16.5, hematocrit was 50, platelet count was 280. INR was 0.96. BMP: Sodium was 141, potassium 4.1, chloride 111, carbon dioxide was 20, anion gap was 10, BUN was 13, creatinine 0.82. Glucose was 95. Calcium 9.7. ASTs were 13, ALTs were 16, and alkaline phosphatase was 88. Albumin was 4.2. TSH was 1.37. Urine showed pH of 5.0, specific gravity of 1.019, urine protein was negative. Ketones were trace. Urine blood nitrates. Bilirubin and urobilinogen were all negative. Urine leukocyte esterase is trace. WBCs were 1 +, RBCs 1+. Squamous epithelial cells were present. Calcium oxalate crystals were present. Ascorbic was positive. Bacteria was absent. IMPRESSION AND PLAN: Ms. Larkin is a 54-year-old female with past medical history significant for obstructive sleep apnea, hypothyroidism, pseudotumor cerebri, chronic back pain, who presented for an elective BARREL LATHE OPERATOR OUTSIDE shunt placement with Dr. Steiner. Hospital Medicine was consulted to help manage systolic blood pressure. Our recommendations are as follows: 1. Status post BARREL LATHE OPERATOR OUTSIDE shunt. Management per Neurosurgery. Pain management per Neurosurgery. 2. Management of systolic blood pressure. The patient's systolic blood pressure is currently 127/75. She does have a p.r.n. order for labetalol 10 mg IV. I would recommend continuing with labetalol to manage her blood pressure. If her systolic blood pressure goes above 140, we could also consider adding hydralazine 5 mg IV q.6 hours as needed for systolic blood pressure greater than 140. 3. Hypothyroid. I would continue her levothyroxine as previously prescribed. 4. Hyperlipidemia. She should continue on atorvastatin as previously prescribed. 5. DVT prophylaxis per Neurosurgery. 6. The patient is full code. 7. Diet per Neurosurgery. 8. Tachycardia. The patient does have tachycardia postoperatively and is requiring increased oxygen. She does have a history of obstructive sleep apnea. I will order a chest x-ray to rule out any acute lung pathology. We will encourage incentive spirometer. TIME SPENT: Time spent on this consultation was approximately 45 minutes, greater than half of that time was spent at the bedside reviewing events leading thus far to her hospitalization, performing physical exam, and reviewing my plan of care. I have discussed this with my attending, Dr. Lita Osborn, who is in agreement with my plan. RENITA TREVINO, COLLATING MACHINE OPERATOR [id number]/[facility] #: [id number] YADIRA
[2019-03-23] MEDS: Levothyroxine TAB* 100 MCG TAB PO SCH (06:00)
[2019-03-23] MEDS: acetaZOLAMIDE TAB* 250 MG PO SCH ×2 (07:54→21:56)
[2019-03-23] MEDS: FLUoxetine CAP* 20 MG PO SCH (07:55)
[2019-03-23] MEDS: Cyanocobalamin TAB* 500 MCG PO SCH (07:55)
--- NOTE | 2019-03-23 08:28 | PN ---
Progress Note - Progress Note Date of Service: 03/23/19 Note: General Surgery Progress Note S: Patient feels well. Had headache overnight. Very little abdominal pain, just when she moves at the incisions. She tolerated clears. Tachycardia improving. O: Vital Signs - 24 hr 03/22/19 03/22/19 03/22/19 10:53 16:31 16:35 Temperature 98.4 F 97.2 F Pulse Rate 99 96 95 Respiratory 18 16 16 Rate Blood Pressure 127/93 131/70 120/73 (mmHg) O2 Sat by Pulse 95 92 95 Oximetry 03/22/19 03/22/19 03/22/19 16:37 16:40 16:45 Temperature Pulse Rate 95 98 Respiratory 20 22 20 Rate Blood Pressure 123/74 126/65 (mmHg) O2 Sat by Pulse 95 95 Oximetry 03/22/19 03/22/19 03/22/19 16:55 16:56 17:00 Temperature Pulse Rate 96 98 Respiratory 19 23 18 Rate Blood Pressure 125/74 120/81 (mmHg) O2 Sat by Pulse 95 94 Oximetry 03/22/19 03/22/19 03/22/19 17:05 17:10 17:15 Temperature Pulse Rate 99 98 101 Respiratory 23 18 19 Rate Blood Pressure 125/72 115/78 118/87 (mmHg) O2 Sat by Pulse 93 95 96 Oximetry 03/22/19 03/22/19 03/22/19 17:20 17:25 17:30 Temperature Pulse Rate 99 103 99 Respiratory 14 16 18 Rate Blood Pressure 129/76 116/74 117/76 (mmHg) O2 Sat by Pulse 94 93 95 Oximetry 03/22/19 03/22/19 03/22/19 17:35 17:54 18:00 Temperature 96.8 F Pulse Rate 100 98 Respiratory 17 20 Rate Blood Pressure 101/77 96/81 121/90 (mmHg) O2 Sat by Pulse 94 93 Oximetry 03/22/19 03/22/19 03/22/19 18:01 18:16 18:30 Temperature Pulse Rate 99 99 101 Respiratory 17 16 16 Rate Blood Pressure 121/90 114/83 104/84 (mmHg) O2 Sat by Pulse 93 91 92 Oximetry 03/22/19 03/22/19 03/22/19 18:42 18:45 19:00 Temperature 96.5 F Pulse Rate 104 102 Respiratory 20 18 Rate Blood Pressure 121/82 130/85 (mmHg) O2 Sat by Pulse 92 91 Oximetry 03/22/19 03/22/19 03/22/19 19:16 19:17 19:18 Temperature 97.4 F Pulse Rate 107 Respiratory 20 15 Rate Blood Pressure 121/79 (mmHg) O2 Sat by Pulse 92 Oximetry 03/22/19 03/22/19 03/22/19 19:30 19:45 20:01 Temperature Pulse Rate 104 111 109 Respiratory 16 19 18 Rate Blood Pressure 120/87 124/81 114/84 (mmHg) O2 Sat by Pulse 91 91 91 Oximetry 03/22/19 03/22/19 03/22/19 20:15 20:31 20:46 Temperature Pulse Rate 108 107 110 Respiratory 18 17 9 Rate Blood Pressure 127/85 126/76 129/82 (mmHg) O2 Sat by Pulse 90 92 93 Oximetry 03/22/19 03/22/19 03/22/19 20:47 21:00 21:01 Temperature Pulse Rate 112 Respiratory 17 20 20 Rate Blood Pressure 113/91 (mmHg) O2 Sat by Pulse 91 Oximetry 03/22/19 03/22/19 03/22/19 21:16 21:28 21:31 Temperature Pulse Rate 113 105 Respiratory 19 21 17 Rate Blood Pressure 124/84 114/83 (mmHg) O2 Sat by Pulse 92 93 Oximetry 03/22/19 03/22/19 03/22/19 21:40 21:42 21:59 Temperature 97.8 F Pulse Rate 110 Respiratory 20 20 Rate Blood Pressure 123/77 (mmHg) O2 Sat by Pulse 91 Oximetry 03/22/19 03/22/19 03/22/19 22:00 22:29 22:31 Temperature Pulse Rate 112 112 110 Respiratory 22 21 12 Rate Blood Pressure 132/84 111/77 (mmHg) O2 Sat by Pulse 91 92 93 Oximetry 03/22/19 03/22/19 03/22/19 22:35 22:41 22:51 Temperature Pulse Rate 112 108 Respiratory 19 20 14 Rate Blood Pressure 110/74 111/80 (mmHg) O2 Sat by Pulse 93 92 Oximetry 03/22/19 03/22/19 03/22/19 23:00 23:01 23:11 Temperature 97.6 F Pulse Rate 109 114 Respiratory 14 14 22 Rate Blood Pressure 103/75 119/73 (mmHg) O2 Sat by Pulse 92 93 Oximetry 03/22/19 03/22/19 03/22/19 23:21 23:25 23:31 Temperature 97.6 F Pulse Rate 112 110 Respiratory 18 15 Rate Blood Pressure 113/69 109/72 (mmHg) O2 Sat by Pulse 91 94 Oximetry 03/22/19 03/23/19 03/23/19 23:51 00:00 00:01 Temperature Pulse Rate 112 113 Respiratory 12 16 16 Rate Blood Pressure 108/65 106/74 (mmHg) O2 Sat by Pulse 94 92 Oximetry 03/23/19 03/23/19 03/23/19 00:11 00:21 00:31 Temperature Pulse Rate 109 110 112 Respiratory 13 14 16 Rate Blood Pressure 101/83 107/78 102/72 (mmHg) O2 Sat by Pulse 90 91 90 Oximetry 03/23/19 03/23/19 03/23/19 00:41 00:51 01:00 Temperature 98.0 F Pulse Rate 112 111 Respiratory 14 13 17 Rate Blood Pressure 94/72 106/78 (mmHg) O2 Sat by Pulse 93 93 Oximetry 03/23/19 03/23/19 03/23/19 01:01 01:31 02:00 Temperature Pulse Rate 117 114 Respiratory 18 15 17 Rate Blood Pressure 114/73 106/73 (mmHg) O2 Sat by Pulse 91 93 Oximetry 03/23/19 03/23/19 03/23/19 02:01 02:03 02:31 Temperature Pulse Rate 116 109 Respiratory 17 18 15 Rate Blood Pressure 113/78 109/75 (mmHg) O2 Sat by Pulse 92 91 Oximetry 03/23/19 03/23/19 03/23/19 03:00 03:01 03:23 Temperature 98.0 F 98.0 F Pulse Rate 114 Respiratory 16 16 Rate Blood Pressure 111/79 (mmHg) O2 Sat by Pulse 90 Oximetry 03/23/19 03/23/19 03/23/19 03:31 04:00 04:46 Temperature Pulse Rate 114 109 Respiratory 17 21 21 Rate Blood Pressure 114/77 105/84 (mmHg) O2 Sat by Pulse 92 94 Oximetry 03/23/19 03/23/19 03/23/19 05:00 05:02 05:31 Temperature Pulse Rate 103 106 Respiratory 17 17 15 Rate Blood Pressure 116/95 107/96 (mmHg) O2 Sat by Pulse 95 93 Oximetry 03/23/19 03/23/19 03/23/19 06:00 06:09 06:17 Temperature Pulse Rate 108 110 Respiratory 16 16 17 Rate Blood Pressure 111/70 (mmHg) O2 Sat by Pulse 92 93 Oximetry 03/23/19 03/23/19 03/23/19 07:00 07:01 08:00 Temperature Pulse Rate 105 105 99 Respiratory 16 18 22 Rate Blood Pressure 113/75 (mmHg) O2 Sat by Pulse 93 92 93 Oximetry 03/23/19 03/23/19 08:01 08:09 Temperature Pulse Rate 101 Respiratory 18 Rate Blood Pressure 102/65 102/65 (mmHg) O2 Sat by Pulse 93 Oximetry Intake & Output 03/22/19 03/23/19 03/23/19 22:59 06:59 14:59 Intake Total 2250 1978 Output Total 1010 2215 350 Balance 1240 -237 -350 Weight 284 lb 6.341 oz 278 lb 3.574 oz Intake: IV Fluids 2250 538 LR 2250 538 Oral 1440 Output: Walker 1010 2215 350 Physical exam: Abdomen- soft, non distended, minimally tender around LUQ incision from port site. Small amount of bruising, but clean and intact. A/P: 54 F with morbid obesity, POD 1 from lap assisted WIRE MESH FILTER FABRICATOR shunt placement. - Advance diet as tolerated - Discharge per [facility] team - Patient can follow up with me at [facility] in 1 week for a post operative check.
--- NOTE | 2019-03-23 08:57 | PN ---
Progress Note - Progress Note Date of Service: 03/23/19 SOAP: Subjective: 54 y/o female post MOTOR ROOM CONTROLLER shunt POD # 1,She has been stable overnight with no acute issues. She has some headaches, denies nausea, vomiting or extremity weakness. She has tolerated orals with out issue. Objective: Patient laying in bed elevated, NAD Neuro: GCS 15, A&O x 3, CN II - XII grossly intact, pupils constrict bilaterally , negative Rombergs test, negaitve pronator drift UPE motor strength 5/5 bilat Derm: C/D/I Assessment: 54 y/o female post MOTOR ROOM CONTROLLER shunt placement POD #1, she is neurologically intact without any focal deficits. CT of Head within normal limits. Plan: transfer to step down unit Ambulate work with PT/OT taper diamox D/C planning Get shunt series in the morning
[2019-03-23] MEDS ORDERED: Multivitamins/Minerals TAB PO SCH (12:00)
--- NOTE | 2019-03-23 12:34 | PN ---
Subjective Date of Service: 03/23/19 Interval History: Patient seen and examined. No acute overnight events. States she has a headache 12/29. Denies n/v, no blurred vision or dizziness. No fevers or chills. Objective Active Medications: Acetaminophen (Tylenol Tab*) 487.5 mg PO Q4HR [facility] Last Admin: 03/23/19 06:01 Dose: 487.5 mg Hydrocodone Bitart/Acetaminophen ([place] 5-325 Tab*) 2 tab PO Q4H PRN PRN Reason: marked pain Last Admin: 03/23/19 07:54 Dose: 2 tab Acetazolamide (Diamox Tab*) 750 mg PO BID [facility] Last Admin: 03/23/19 07:54 Dose: 750 mg Atorvastatin Calcium (Lipitor*) 20 mg PO BEDTIME [facility] Last Admin: 03/22/19 21:28 Dose: 20 mg Cyanocobalamin (Vitamin B12 Tab*) 1,000 mcg PO DAILY [facility] Last Admin: 03/23/19 07:55 Dose: 1,000 mcg Fluoxetine HCl (Prozac Cap*) 20 mg PO QAM [facility] Last Admin: 03/23/19 07:55 Dose: 20 mg Lactated Ringer's (Lactated Ringers 1000 Ml Bag*) 1,000 mls @ 75 mls/hr IV .per rate [facility] Last Admin: 03/22/19 19:01 Dose: 75 mls/hr Labetalol HCl (Trandate Iv*) 10 mg IV Q6H PRN PRN Reason: SBP>160 Levothyroxine Sodium (Synthroid Tab*) 100 mcg PO QAM@0600 [facility] Last Admin: 03/23/19 06:00 Dose: 100 mcg Magnesium Hydroxide (Milk Of Magnesia Liq*) 30 ml PO DAILY PRN PRN Reason: CONSTIPATION Morphine Sulfate (Morphine Inj (Syringe))*) 1 mg IV Q1H PRN PRN Reason: PAIN Last Admin: 03/23/19 06:09 Dose: 1 mg Multivitamins/Minerals (Theragran/Minerals Tab*) 1 tab PO 1200 [facility] Pantoprazole Sodium (Protonix Tab*) 40 mg PO QPM [facility] Vital Signs - 8 hr 03/23/19 03/23/19 03/23/19 04:46 05:00 05:02 Temperature Pulse Rate 109 103 Respiratory 21 17 17 Rate Blood Pressure 105/84 116/95 (mmHg) O2 Sat by Pulse 94 95 Oximetry 03/23/19 03/23/19 03/23/19 05:31 06:00 06:09 Temperature Pulse Rate 106 108 Respiratory 15 16 16 Rate Blood Pressure 107/96 (mmHg) O2 Sat by Pulse 93 92 Oximetry 03/23/19 03/23/19 03/23/19 06:17 07:00 07:01 Temperature 97 F Pulse Rate 110 105 105 Respiratory 17 16 18 Rate Blood Pressure 111/70 113/75 (mmHg) O2 Sat by Pulse 93 93 92 Oximetry 03/23/19 03/23/19 03/23/19 08:00 08:01 08:09 Temperature Pulse Rate 99 101 Respiratory 18 18 Rate Blood Pressure 102/65 102/65 (mmHg) O2 Sat by Pulse 93 93 Oximetry 03/23/19 03/23/19 03/23/19 09:00 09:01 10:00 Temperature 97.4 F Pulse Rate 104 103 116 Respiratory 17 16 16 Rate Blood Pressure 115/81 (mmHg) O2 Sat by Pulse 94 93 94 Oximetry 03/23/19 03/23/19 10:01 10:23 Temperature 97.4 F Pulse Rate 113 Respiratory 12 Rate Blood Pressure 113/71 (mmHg) O2 Sat by Pulse 94 Oximetry Oxygen Devices in Use Now: Nasal Cannula Appearance: alert, NAD Eyes: No Scleral Icterus, PERRLA Ears/Nose/Mouth/Throat: Mucous Membranes Moist, - - shunt dressing CDI Neck: NL Appearance and Movements; NL JVP, Trachea Midline Respiratory: Symmetrical Chest Expansion and Respiratory Effort, Clear to Auscultation Cardiovascular: NL Sounds; No Murmurs; No JVD, RRR, No Edema Abdominal: NL Sounds; No Tenderness; No Distention Extremities: No Edema, No Clubbing, Cyanosis Skin: No Rash or Ulcers Neurological: Alert and Oriented x 3, NL Sensation Nutrition: Taking PO's Diagnostic Imaging: Patient Name: PANCHO BRANDON Medical Record#: [id number] Ordering Physician: Christen AVILA Acct.#: [id number] : 1965 Age: 54 Sex: F Location: [facility] Exam Date: 03/23/19 06 ADM Status: ADM IN Order Information: CT BRAIN WO Accession Number: [id number] CPT: 50778 EXAM: CT Head Without Contrast EXAM DATE/TIME: 03/23/2019 4:18 AM CLINICAL HISTORY: 54 years old, female; Device placement; Cerebral fluid drainiage device or shunt; Additional info: Post op scan TECHNIQUE: Imaging protocol: Axial computed tomography images of the head without contrast. Coronal and sagittal reformatted images were created and reviewed. Radiation optimization: All CT scans at this facility use at least one of these dose optimization techniques: automated exposure control; mA and/or kV adjustment per patient size (includes targeted exams where dose is matched to clinical indication); or iterative reconstruction. COMPARISON: BRAIN WO MRI BRAIN W/O 01/28/2019 5:54 PM FINDINGS: Tubes, catheters and devices: There is a right-sided intraventricular drain noted ending in the anterior horn of the right lateral ventricle. There are overlying surgical cristian and subcutaneous emphysema. Brain: Normal. No hemorrhage. Unremarkable white matter. No mass effect. Ventricles: Normal. No ventriculomegaly. Bones/joints: Unremarkable. No acute fracture. Sinuses: Visualized sinuses are unremarkable. No fluid levels. Mastoid air cells: Visualized mastoid air cells are well aerated. No mastoid effusion. Soft tissues: See Tubes, Catheters And Devices Finding. IMPRESSION: There is a right-sided intraventricular drain noted ending in the anterior horn of the right lateral ventricle. There are overlying surgical cristian and subcutaneous emphysema. Assess/Plan/Problems-Billing Assessment: This is a 54 year old female with history of - Patient Problems (1) Pseudotumor cerebri Code(s): G93.2 - BENIGN INTRACRANIAL HYPERTENSION SNOMED Code(s): 96042807 Comment: - POD1 DELIVERY HELPER shunt insertion - POC as per neurosurgery - Goal SBP<140, BP currently stable at SB<120s - Continue diamox BID - Pain control - DC arterial line, OOB to chair - PT eval (2) Chronic back pain Code(s): M54.9 - DORSALGIA, UNSPECIFIED; G89.29 - OTHER CHRONIC PAIN SNOMED Code(s): 251442291 Comment: - Supportive care (3) Hypoxia Code(s): R09.02 - HYPOXEMIA SNOMED Code(s): 279598829 Comment: - On O2 2L NC, wean as tolerated (4) Hypothyroid Code(s): E03.9 - HYPOTHYROIDISM, UNSPECIFIED SNOMED Code(s): 45849073 Comment: - Continue synthroid Status and Disposition: Stable, recommend transfer to surgical floor.
[2019-03-23] MEDS ORDERED: Pantoprazole TAB * 40 MG TAB PO SCH (18:00)
[2019-03-23] MEDS: Ibuprofen TAB* 400 MG PO PRN (21:56)
[2019-03-23] MEDS: Atorvastatin* 20 MG TAB PO SCH (21:56)
[2019-03-24] MEDS: Ibuprofen TAB* 400 MG PO PRN (03:40)
[2019-03-24] MEDS: Levothyroxine TAB* 100 MCG TAB PO SCH (06:05)
[2019-03-24 07:59] VITALS: BP 137/84
[2019-03-24] MEDS: Cyanocobalamin TAB* 500 MCG PO SCH (08:36)
[2019-03-24] MEDS: acetaZOLAMIDE TAB* 250 MG PO SCH (08:36)
[2019-03-24] MEDS: FLUoxetine CAP* 20 MG PO SCH (08:37)
--- NOTE | 2019-03-24 08:55 | PN ---
Progress Note - Progress Note Date of Service: 03/24/19 SOAP: Subjective: 54 y/o female post WAX MOLDER shunt POD #2 doing well, no acute changes over night. Patient has some mild BAUER that are brief, denies nausea and vomiting, has been able to void, pass gas and had BM this morning. Still has shunt series pending to check base line shunt setting. Objective: Vital Signs - 12 hr Temp Pulse Resp BP Pulse Ox 03/24/19 08:00 16 03/24/19 07:58 98 F 81 16 137/84 95 03/24/19 04:17 127/75 03/24/19 03:44 97.3 F 86 17 121/101 97 03/24/19 00:34 115/67 03/24/19 00:18 97.9 F 91 18 123/100 96 Patient laying in bed elevated, NAD Neuro: GCS 15, A&O x 3, CN II - XII grossly intact, pupils constrict bilaterally , negative Rombergs test, negative pronator drift UPE motor strength 5/5 bilat Derm: C/D/I Assessment: 54 y/o female s/p WAX MOLDER shunt palcement doing well, has been stable overnight, ready for possible discharge. Plan: Complete shunt series Pain control as needed D/C home.
== END 2019-03-24 10:55 | disposition home or self-care (01) | DRG 32 ==
LOC: AA 08:36 → ICU 18:19 → SSU 03-23 15:04
PROVIDERS: ADMIT Neurological Surgery; ATTEND Neurological Surgery
PROC: 8E09XBZ Computer Assisted Procedure of Head and Neck Region (ICD-10-PCS; 2019-03-22)
PROC: 00164J6 Bypass Cerebral Ventricle to Peritoneal Cavity with Synthetic Substitute, Percutaneous Endoscopic Approach (ICD-10-PCS; principal; 2019-03-22 10:45)
PROC: 0WHG43Z Insertion of Infusion Device into Peritoneal Cavity, Percutaneous Endoscopic Approach (ICD-10-PCS; 2019-03-22 10:45)
DX: G93.2 Benign intracranial hypertension (principal); H47.11 Papilledema associated with increased intracranial pressure; M51.04 Intervertebral disc disorders with myelopathy, thoracic region; Z68.41 Body mass index [BMI] 40.0-44.9, adult; M51.24 Other intervertebral disc displacement, thoracic region; E66.01 Morbid (severe) obesity due to excess calories; G89.29 Other chronic pain; M54.9 Dorsalgia, unspecified; R09.02 Hypoxemia; E03.9 Hypothyroidism, unspecified; E78.00 Pure hypercholesterolemia, unspecified; F32.9 Major depressive disorder, single episode, unspecified; J31.0 Chronic rhinitis; E78.5 Hyperlipidemia, unspecified; G47.33 Obstructive sleep apnea (adult) (pediatric); Z88.6 Allergy status to analgesic agent; Z82.49 Family history of ischemic heart disease and other diseases of the circulatory system; Z80.8 Family history of malignant neoplasm of other organs or systems; Z83.3 Family history of diabetes mellitus; Z80.7 Family history of other malignant neoplasms of lymphoid, hematopoietic and related tissues; R00.0 Tachycardia, unspecified; Z98.1 Arthrodesis status
CPT/HCPCS: 70250; 70360; 70450; 71045; 72020; 74018; A4301; A9270-GY; C1887; J0690; J1100; J2250; J2270; J2405; J2704; J2710; J3010; J3490

== ENCOUNTER 2019-05-24 05:47 | Inpatient (IN) | payer OTHER ==
[~2019-05-24 05:47] MED LIST changes: -Famotidine IV* 10 MG/ML 2 ML (20 mg) IV ONE; -Lactated Ringers 1000 ML Bag* 1,000 ML IV SCH
--- OUTSIDE RECORDS SUMMARY | 2019-05-24 05:50 | XMS REPORT | Summary of Care ---
:1965 Author Organization [facility] Address [address] [place] [address] Care Team Providers Name Role Phone Monse Chahal MD Primary Care Provider Reason for Visit Reason Comments Pre-Op Exam surgery with Dr Steiner discectomy 05-24-19 Encounter Details Date Type Department Care Team Description 05/10/2019 Office Visit [place] [facility] Monse Chahal MD Preop examination (Primary Dx); Medicine [address] Pseudotumor cerebri; [address] [place] [address] History of brain shunt; [place] [address] B12 deficiency; [phone] Hypothyroidism due to acquired atrophy of thyroid; (Fax) Sciatic leg pain; Chronic midline low back pain without sciatica; Obstructive sleep apnea; BMI 39.0-39.9,adult Allergies Active Allergy Reactions Severity Noted Date Comments Codeine GI Reaction 02/28/2008 N&V documented as of this encounter (statuses as of 05/10/2019) Medications Medication Sig Dispensed Refills Start Date End Date Status Clobetasol TOPICAL apply to affected 50 mL 3 11/05/2016 Active solution 0.05 % Apply area once daily externally SolutionIndications: Rash Ibuprofen 200 MG Oral Take 3 Caps by 0 Active Cap mouth DAILY. Acetaminophen 500 MG Take 1 Cap by 0 Active Oral Cap mouth TWICE DAILY. pantoprazole (PROTONIX) take 1 tablet by 90 Tab 1 02/04/2019 Active 40 MG Oral Tab EC mouth daily levothyroxine Take 1 Tab by 90 Tab 1 02/04/2019 Active (SYNTHROID\\UNITHROID) mouth BEFORE 100 MCG Oral Tab BREAKFAST. tramadol (ULTRAM) 50 MG Take 1 Tab by 120 Tab 0 03/18/2019 Active Oral Tab mouth EVERY EIGHT HOURS NEEDED (pain). Max Daily Amount: 150 mg. atorvastatin (LIPITOR) take 1 tablet by 90 Tab 3 04/01/2019 Active 20 MG Oral mouth once daily TabIndications: Lipid disorder fluoxetine (PROZAC) 20 take 1 capsule by 90 Cap 3 04/01/2019 Active MG Oral CapIndications: mouth once daily Anxiety state Cyanocobalamin (B-12) Take 1 Tab by 30 Tab 0 04/05/2019 Active 1000 MCG Oral mouth DAILY. TabIndications: B12 deficiency documented as of this encounter (statuses as of 05/10/2019) Active Problems Problem Noted Date Papilledema 03/18/2019 Pseudotumor cerebri 2019 Overview: Diagnosis at [facility] 02/02/19 - [facility] - Dr You ( resident) Dr Arndt - attending - Transferred from [facility] - Had elevated ICP- ( 31 ) treated with diamox 750 mg bid to be titrated down by Dr Bryan - Sodium and potassium to be followed GOLD NIB GRINDER Shunt placed - Dr Steiner - 03/24/19 S/P [facility] 01/12/2017 Overview: 2008 endometriosis IgA deficiency 10/13/2014 Obstructive sleep apnea 08/01/2014 Overview: Home sleep study fall 2013: very severe AHI 56 minute 02 sat 64% Chronic nonallergic rhinitis 04/04/2014 Pure hypercholesterolemia 03/19/2012 Hypothyroidism 03/19/2012 BMI 39.0-39.9,adult 03/19/2012 Overview: This patient's BMI has been calculated and is above average, and BMI management plan is completed. General patient education discussion including: weight loss link to reduction of risk factors for car diac and other diseases Exercise intervention: advised to begin walking 30-45 minutes most days of the week. Behavioral treatment: will begin portion control, not skipping meals and reduced caloric intake. Depression, major, in remission 02/22/2008 documented as of this encounter (statuses as of 05/10/2019) Resolved Problems Problem Noted Date Resolved Date Low back pain 02/22/2008 02/28/2008 documented as of this encounter (statuses as of 05/10/2019) Immunizations Name Administration Dates Next Due Influenza (IM) Preservative Free 05/12/2017, 06/23/2014 PNEUMOCOCCAL POLYSACCHARIDE VACCINE 08/08/2014 TDAP Vaccine 01/12/2017 documented as of this encounter Social History Tobacco Use Types Packs/Day Years Used Date Former Smoker Cigarettes 1 30 Smokeless Tobacco: Never Used Comments: quit 09/11/08 Alcohol Use Drinks/Week oz/Week Comments No Sex Assigned at Date Recorded Not on file Job Start Date Occupation Industry Not on file Not on file Not on file Travel History Travel Start Travel End No recent travel history available. documented as of this encounter Last Filed Vital Signs Vital Sign Reading Time Taken Comments Blood Pressure 114/80 05/10/2019 2:15 PM EDT Pulse 100 05/10/2019 2:15 PM EDT Temperature - - Respiratory Rate - - Oxygen Saturation 95% 05/10/2019 2:15 PM EDT Inhaled Oxygen Concentration - - Weight 122.5 kg (270 lb) 05/10/2019 2:15 PM EDT Height 172.7 cm (5' 8") 05/10/2019 2:15 PM EDT Body Mass Index 41.05 05/10/2019 2:15 PM EDT documented in this encounter Patient Instructions Patient InstructionsCreMonse leiva MD - 05/10/2019 2:20 PM EDTPlan Patient is a good candidate for planned surgery- no further testing or change in medicinal regimen necessary She has not risk factors aka the RCRI - Risk of cardiovascular complication is < 0.4% Take all medication except no NSAID/ ASA with a sip of water Before surgery - documented in this encounter Progress Notes Monse Chahal MD - 05/10/2019 2:20 PM EDT NAME:Ashli Larkin 1965: 1965 ENC Date: 05/10/2019 CC: Chief Complaint Patient presents with Pre-Op Exam surgery with Dr Steiner discectomy 05-24-19 Ashli Larkin is a 54-y.o. female Recent diagnosis and treatment for pseudotumor cerebri requiring GOLD NIB GRINDER shunt Here for preop evualuation for thoracic spine fusion with Dr Steiner Has no history of cardiopulmonary disease - she has a history of obsructive sleep apnea but does notuse her mask ( 1.5 years ) . Does not miss the use of the machine at this time- Patient is not very active but does walk without noting any shortness of breath / chest pressure / fainting / palpitations No history of bleeding / clotting - Tolerated anesthesia in the past including recently with her shunt surgery- Current Outpatient Medications Medication Sig Acetaminophen 500 MG Oral Cap Take 1 Cap by mouth TWICE DAILY. atorvastatin (LIPITOR) 20 MG Oral Tab take 1 tablet by mouth once daily Clobetasol TOPICAL solution 0.05 % Apply externally Solution apply to affected area once daily Cyanocobalamin (B-12) 1000 MCG Oral Tab Take 1 Tab by mouth DAILY. fluoxetine (PROZAC) 20 MG Oral Cap take 1 capsule by mouth once daily Ibuprofen 200 MG Oral Cap Take 3 Caps by mouth DAILY. levothyroxine (SYNTHROID\\UNITHROID) 100 MCG Oral Tab Take 1 Tab by mouth BEFORE BREAKFAST. pantoprazole (PROTONIX) 40 MG Oral Tab EC take 1 tablet by mouth daily tramadol (ULTRAM) 50 MG Oral Tab Take 1 Tab by mouth EVERY EIGHT HOURS NEEDED (pain). Max Daily Amount: 150 mg. No current facility-administered medications for this visit. Patient Active Problem List Diagnosis Date Noted Papilledema 03/18/2019 Pseudotumor cerebri 2019 Diagnosis at [facility] 02/02/19 - [facility] - Dr You ( resident) Dr Arndt - attending- Transferred from [facility] - Had elevated ICP- ( 31 ) treated with diamox 750 mg bid to be titrated downby Dr Bryan - Sodium and potassium to be followed GOLD NIB GRINDER Shunt placed - Dr Steiner - 03/24/19 S/P [facility] 01/12/20172008 endometriosis IgA deficiency (HCC) 10/13/2014 Obstructive sleep apnea 08/01/2014 Home sleep study fall 2013: very severe AHI 56 minute 02 sat 64% Chronic nonallergic rhinitis 04/04/2014 Pure hypercholesterolemia 03/19/2012 Hypothyroidism 03/19/2012 BMI 39.0-39.9,adult 03/19/2012 This patient's BMI has been calculated and is above average, and BMI management plan is completed. General patient education discussion including: weight loss link to reduction of risk factors for cardiac and other diseases Exercise intervention: advised to begin walking 30-45 minutes most days of the week. Behavioral treatment: will begin portion control, not skipping meals and reduced caloric intake. Depression, major, in remission (HCC) 02/22/2008 Family History Problem Relation Age of Onset Cancer Father Hypertension Father Cancer Brother Hodgkin Breast Cancer Paternal Grandmother Diabetes Maternal Grandmother Hypertension Brother Breast Cancer Other cousin No cardiopulmonary symptoms No upper or lower GI complaints No urinary tract symptoms. No bruising/ bleeding. No neurological complaints . No insomnia.+ . Social History Tobacco Use Smoking status: Former Smoker Packs/day: 1.00 Years: 30.00 Pack years: 30.00 Types: Cigarettes Smokeless tobacco: Never Used Tobacco comment: quit 09/11/08 Substance Use Topics Alcohol use: No Drug use: No OBJECTIVE: BP 114/80 | Pulse 100 | Ht 5' 8" (1.727 m) | Wt 270 lb (122.5 kg) | LMP 01/2010 | SpO2 95% | BMI 41.05 kg/m . Heent neg Neck no JVD, thyromegaly or bruit Lungs Clear CV rrr Abd soft, nontender, no organomegaly Ext no edema; no lesions; pulses intact Neuro: intellect intact ; motor including gait unremarkable A/P ICD-9-CM ICD-10-CM 1. Preop examination V72.84 Z01.818 AMBULATORY 12 LEAD EKG (GLOBAL) 2. Pseudotumor cerebri 348.2 G93.2 3. History of brain shunt V45.2 Z98.2 4. B12 deficiency 266.2 E53.8 5. Hypothyroidism due to acquired atrophy of thyroid 244.8 E03.4 246.8 6. Sciatic leg pain 724.3 M54.30 7. Chronic midline low back pain without sciatica 724.2 M54.5 338.29 G89.29 8. Obstructive sleep apnea 327.23 G47.33 9. BMI 39.0-39.9,adult V85.39 Z68.39 Patient has blood work anticipated at [facility] Patient Instructions Plan Patient is a good candidate for planned surgery- no further testing or change in medicinal regimen necessary She has not risk factors aka the RCRI - Risk of cardiovascular complication is < 0.4% Take all medication except no NSAID/ ASA with a sip of water Before surgery - last blood work here Lab Results Component Value Date NA 141 02/28/2019 K 3.6 02/28/2019 CL 111 (H) 02/28/2019 CO2 19 (L) 02/28/2019 GLUCOSE 113 (H) 02/28/2019 BUN 12 02/28/2019 CREATININE 0.9 02/28/2019 CALCIUM 8.8 02/28/2019 TP 6.7 02/28/2019 ALBUMIN 3.9 02/28/2019 AST 21 02/28/2019 ALT 33 02/28/2019 ALK 92 02/28/2019 TBILI 0.4 02/28/2019 EGFR >60 02/28/2019 Lab Results Component Value Date GLYCO 5.9 (H) 01/17/2019 GLYCO 5.4 08/24/2017 GLYCO 5.5 04/15/2017 AUTHOR: Monse Chahal MD 14:50 05/10/2019 documented in this encounter Plan of Treatment Name Type Priority Associated Diagnoses Order Schedule AMBULATORY 12 LEAD EKG EKG Routine Preop examination Ordered: 05/10/2019 (GLOBAL) Health Maintenance Due Date Last Done Comments ZOSTER IMMUNIZATION SERIES 02/02/2014 (1 of 2) PNEUMOCOCCAL 0-64 YRS (2 of 08/08/2015 08/08/2014 3 - PCV13) MAMMOGRAM (SCREENING) 04/15/2018 04/15/2017, 03/25/2016, 03/19/2015, Additional history exists LUNG CANCER SCREENING 02/02/2019 INFLUENZA VACCINE (#1) 2019 05/12/2017, 06/23/2014 DIABETES SCREENING 02/29/2020 02/28/2019, 02/07/2019, 01/17/2019, Additional history exists DEPRESSION SCREENING 03/18/2020 03/18/2019 LIPID DISORDER SCREENING 04/01/2024 04/01/2019, 01/17/2019, 08/24/2017, Additional history exists COLONOSCOPY SCREENING 07/06/2024 07/06/2014 HPV IMMUNIZATION SERIES Aged Out No longer eligible based on patient's age to complete this topic MENINGOCOCCAL VACCINE IMM Aged Out No longer eligible based on patient's age to complete this topic documented as of this encounter Goals Goal Patient Goal Associated Recent Patient-Stated? Author Type Problems Progress Depression Depression No donnie Johnson (PHQ-9) RHETT Clemons total score < 5 Note: This is an individualized treatment (depression) goal for Ashli Larkin: Displayed above is your goal for a depression screening (PHQ-9) score that would indicate good control of your depression. Keep a regular sleep schedule Lifestyle No Kaci Johnson FNP Note: This is an individualized lifestyle goal for Ashli Larkin: Please maintain a regular sleep schedule. This may help with some symptoms of depression. Take all prescribed medications as Self-management No Kaci Johnson FNP directed Note: This is an individualized self-management goal for Ashli Larkin: Please take all prescribed medications as directed. 1. Do not skip doses. If you cannot afford your medications, talk with your doctor. 2. Use a pill reminder system such as a pill box if needed. Your pharmacist can help you with this. 3. Contact your Pharmacy 5 days before your medication runs out. If you cannot take your medications for any reasons, talk with your doctor. 4. Please bring all of your medication bottles and inhalers (or a list of all your medications/inhalers) with you to every visit. Potential barriers to meeting all of your care plan goals will continue to be addressed on an ongoing basis. documented as of this encounter Results Not on filedocumented in this encounter Visit Diagnoses Diagnosis Preop examination - Primary Preoperative examination, unspecified Pseudotumor cerebri Benign intracranial hypertension History of brain shunt B12 deficiency Other B-complex deficiencies Hypothyroidism due to acquired atrophy of thyroid Sciatic leg pain Chronic midline low back pain without sciatica Obstructive sleep apnea Obstructive sleep apnea (adult) (pediatric) BMI 39.0-39.9,adult Body Mass Index 39.0-39.9, adult documented in this encounter Insurance Payer Benefit Plan / Subscriber ID Effective Dates Phone Address Type Group [employer] COMMERCIAL AETNA [facility] xxxxxxxxxx 2014-Present Aetna Guarantor Name Account Type Relation to Date of Phone Billing Address Patient Ashli Larkin Personal/Famil 1965 [id number] [place] [address] 0 (Work) documented as of this encounter
--- OUTSIDE RECORDS SUMMARY | 2019-05-24 05:50 | XMS REPORT | Summary of Care ---
:1965 Author Organization [facility] Address [address] [place] [address] Care Team Providers Name Role Phone Monse Chahal MD Primary Care Provider Reason for Visit Reason Comments Follow Up UA from pre [facility] with abnormal result Encounter Details Date Type Department Care Team Description 05/20/2019 Office Visit [place] [facility] Monse Chahal MD Acute cystitis without Medicine [address] hematuria (Primary Dx) [address] [place] [address] [place] [address] [phone] Allergies Active Allergy Reactions Severity Noted Date Comments Codeine GI Reaction 02/28/2008 N&V documented as of this encounter (statuses as of 05/20/2019) Medications Medication Sig Dispensed Refills Start Date [...] MCG Oral mouth DAILY. TabIndications: B12 deficiency ciprofloxacin (CIPRO) Take 1 Tab by 8 Tab 0 05/20/2019 Active 250 MG Oral Tab mouth TWICE DAILY. documented as of this encounter (statuses as of 05/20/2019) Active Problems Problem Noted Date Papilledema 03/18/2019 Pseudotumor cerebri 2019 Overview: Diagnosis at [facility] 02/02/19 - [place] - Dr You ( resident) Dr Arndt - attending - Transferred from [facility] - Had elevated ICP- ( 31 ) treated with diamox 750 mg bid to be titrated down by Dr Bryan - Sodium and potassium to be followed RN TRANSPLANT Shunt placed - Dr Steiner - 03/24/19 S/P [facility] 01/12/2017 Overview: 2008 endometriosis IgA deficiency 10/13/2014 [...] as of this encounter (statuses as of 05/20/2019) Resolved Problems Problem Noted Date Resolved Date Low back pain 02/22/2008 02/28/2008 documented as of this encounter (statuses as of 05/20/2019) Immunizations Name Administration Dates Next Due Influenza (IM) Preservative Free 05/12/2017, 06/23/2014 PNEUMOCOCCAL POLYSACCHARIDE VACCINE 08/08/2014 TDAP Vaccine 01/12/2017 documented as of this encounter Social History Tobacco Use Types Packs/Day Years Used Date Former Smoker Cigarettes 10 20 Smokeless Tobacco: Never Used Comments: quit 09/11/08 Alcohol Use Drinks/Week oz/Week Comments No Sex Assigned at Date Recorded Not on file Job Start Date Occupation Industry Not on file Not on file Not on file Travel History Travel Start Travel End No recent travel history available. documented as of this encounter Last Filed Vital Signs Vital Sign Reading Time Taken Comments Blood Pressure 123/77 05/20/2019 3:12 PM EDT Pulse 90 05/20/2019 3:12 PM EDT Temperature 37.3 05/20/2019 3:12 PM EDT C (99.2 F) Respiratory Rate - - Oxygen Saturation 98% 05/20/2019 3:12 PM EDT Inhaled Oxygen Concentration - - Weight 122.5 kg (270 lb) 05/20/2019 3:12 PM EDT Height 172.7 cm (5' 8") 05/20/2019 3:12 PM EDT Body Mass Index 41.05 05/20/2019 3:12 PM EDT documented in this encounter Progress Notes Monse Chahal MD - 05/20/2019 3:40 PM EDT NAME:Ashli Larkin [birth year] ENC Date: 05/20/2019 CC: Chief Complaint Patient presents with Follow Up UA from pre [facility] with abnormal result Ashli Larkin is a 54-y.o. female Going for spine surgery [facility] - ua done as part of work up - Was found to have wbc / rbc - but no bacterial grew and patient has not obvious symptoms of UTI Again today ua shows rbc/ wbc - will send off for culture and treat before surgery- 2. B12 842 - And TSH ok - Current Outpatient Medications Medication Sig Acetaminophen 500 [...] Papilledema 03/18/2019 Pseudotumor cerebri 2019 Diagnosis at [facility] 02/02/19 - [place] - Dr You ( resident) Dr Arndt - attending- Transferred from [facility] - Had elevated ICP- ( 31 ) treated with diamox 750 mg bid to be titrated downby Dr Bryan - Sodium and potassium to be followed RN TRANSPLANT Shunt placed - Dr Steiner - 03/24/19 S/P [facility] 01/12/20172008 endometriosis IgA deficiency ([facility]) 10/13/2014 Obstructive sleep apnea 08/01/2014 Home sleep [...] reduced caloric intake. Depression, major, in remission ([facility]) 02/22/2008 Family History Problem Relation Age of [...] use: No Drug use: No OBJECTIVE: BP 123/77 | Pulse 90 | Temp 99.2 F (37.3 C) | Ht 5' 8" (1.727 m) | Wt 270 lb (122.5 kg)| LMP 10/26/2009 | SpO2 98% | BMI 41.05 kg/m . A/P ICD-9-CM ICD-10-CM 1. Pre-operative cardiovascular examination V72.81 Z01.810 URINE DIP MANUAL ( AMB POCT) URINE CULTURE (C&S) There are no Patient Instructions on file for this visit. AUTHOR: Monse Chahal MD 15:16 05/20/2019 documented in this encounter Plan of Treatment Name Type Priority Associated Diagnoses Date/Time URINE CULTURE (C&S) Lab Routine 05/20/2019 3:15 PM EDT Name Type Priority Associated Diagnoses Order Schedule URINE CULTURE (C&S) Lab Routine 1 Occurrences starting 05/20/2019 until 11/19/2019 Health Maintenance Due Date Last Done Comments [...] ongoing basis. documented as of this encounter Procedures Procedure Name Priority Date/Time Associated Diagnosis Comments URINE DIP MANUAL Routine 05/20/2019 3:10 PM Results for this (AMB POCT) EDT procedure are in the results section. documented in this encounter Results URINE DIP MANUAL (AMB POCT) (05/20/2019 3:10 PM EDT) URINE GLUCOSE (POCT) Negative Negative mg/dl [facility] POCT URINE BILIRUBIN Negative Negative [facility] (POCT) [facility] POCT Urine Ketones (POCT) Negative Negative [facility] POCT URINE SPECIFIC 1.010 1.005 - 1.030 [facility] GRAVITY (POCT) [facility] POCT URINE BLOOD (POCT) Trace-Intact (A) Negative [facility] POCT URINE PH (POCT) 6.0 5.0 - 8.0 [facility] POCT URINE PROTEIN (POCT) Negative Negative mg/dl [facility] POCT URINE UROBILINOGEN 0.2 0.2 - 1.0 mg/dl [facility] (POCT) [facility] POCT URINE NITRITES Negative Negative [facility] (POCT) [facility] POCT URINE LEUKOCYTES Moderate (A) Negative [facility] (POCT) Cells/uL [facility] POCT Specimen Urine Performing Organization Address City/State/Zipcode Phone Number [facility] [address] [place] [address] documented in this encounter Visit Diagnoses Diagnosis Acute cystitis without hematuria - Primary Acute cystitis documented in this encounter Insurance Payer Benefit Plan / Subscriber ID Effective Dates Phone Address Type Group AETNA COMMERCIAL AETNA [facility] xxxxxxxxxx 2014-Present Aetna Guarantor Name Account Type Relation to Date of Phone Billing Address Patient Ashli Larkin Personal/Famil 1965 [id number] [place] [address] 0 (Work) documented as of this encounter
[2019-05-24] MEDS ORDERED: Famotidine IV* 10 MG/ML 2 ML (20 mg) IV ONE (06:00)
[2019-05-24] MEDS ORDERED: Lactated Ringers 1000 ML Bag* 1,000 ML IV SCH ×2 (06:00→18:00)
[2019-05-24] MEDS ORDERED: Buffered Lidocaine 1% SYRIN* 1 ML/SYRINGE INTRADERM ONE (06:25)
[2019-05-24] MEDS ORDERED: ceFAZolin 2 GM in NS PREMIX(*) 2 GM/100 ML BAG IVPB ONE ×3 (06:26→16:29)
[2019-05-24] MEDS ORDERED: Famotidine IV* 10 MG/ML 2 ML (20 mg) ONE (06:26)
[2019-05-24] MEDS ORDERED: Thrombin 5,000 UNITS* 1 APPLIC KIT - topical use - TOPICAL ONE (06:28)
[2019-05-24] MEDS ORDERED: Bacitracin INJECTION* 50,000 UNITS ONE ×4 (06:28→15:54)
[2019-05-24] MEDS ORDERED: Bupivacaine 0.25% W/EPI* 10 ML SDV ONE (06:29)
[2019-05-24] MEDS ORDERED: ceFAZolin 1 GM ADVAN(*) 1 GM ADDV.VIAL IVPB ONE ×4 (06:59→16:29)
[2019-05-24] MEDS ORDERED: Midazolam* 1 MG/ML 5 ML VIAL (5 MG) ONE (07:16)
[2019-05-24] MEDS ORDERED: fentaNYL* 50 MCG/ML 2 ML VIAL (100 MCG VIAL) ONE ×7 (07:16→18:13)
[2019-05-24] MEDS ORDERED: Lidocaine 2% PF * 5 ML VIAL ONE (08:01)
[2019-05-24] MEDS ORDERED: Succinylcholine* 20 MG/ML 10 ML VIAL ONE (08:02)
[2019-05-24] MEDS ORDERED: Dexamethasone IV* 4 MG/ML 1 ML (4 MG) ONE ×2 (08:02→11:02)
[2019-05-24] MEDS ORDERED: Cisatracurium* 2 MG/ML MDV 5 ML ONE (08:02)
[2019-05-24] MEDS ORDERED: Propofol* 10 MG/ML 20 ML BTL ONE ×4 (08:02→11:48)
[2019-05-24] MEDS ORDERED: Artificial Tear OPHTH.OINT* 3.5 GM ONE (08:04)
[2019-05-24] MEDS ORDERED: EPHEDrine (Pressors)* 50 MG/ML VIAL ONE (08:58)
[2019-05-24] MEDS ORDERED: Hetastarch 6% in NS* 500 ML IV ONE (09:00)
[2019-05-24] MEDS ORDERED: Phenylephrine 10 MG/ML VIAL* 1 ML VIAL ONE (09:16)
[2019-05-24] MEDS ORDERED: DiMENhydriNATE IV* 50 MG/ML VIAL IV PUSH PRN (11:11)
[2019-05-24] MEDS ORDERED: diPHENhydraMINE IV* 50 MG/ML 1 ml VIAL (BENADRYL) IV PRN (11:11)
[2019-05-24] MEDS ORDERED: PROCHLORPERAZINE INJ 5 MG/ML 2 ML VIAL IV PRN (11:11)
[2019-05-24] MEDS ORDERED: Naloxone* 0.4 MG/ML 1 ML VIAL IV PRN (11:11)
[2019-05-24] MEDS ORDERED: fentaNYL* 50 MCG/ML 2 ML VIAL (100 MCG VIAL) IV PRN (11:11)
[2019-05-24] MEDS ORDERED: Propofol* 500 MG/50 ML BTL ONE (13:15)
[2019-05-24] MEDS ORDERED: Acetaminophen IV 1GM/100ML * 100 ML ONE (13:23)
[2019-05-24] MEDS ORDERED: DiMENhydriNATE IV* 50 MG/ML VIAL ONE (17:36)
[2019-05-24] MEDS: fentaNYL* 50 MCG/ML 2 ML VIAL (100 MCG VIAL) IV PRN ×4 (17:45→18:22)
[2019-05-24] MEDS ORDERED: PROCHLORPERAZINE INJ 5 MG/ML 2 ML VIAL ONE (17:45)
--- NOTE | 2019-05-24 18:25 | CONSULT ---
Consult Consult: INPATIENT PAIN CONSULTATION Ashli Larkin is a 54 year old female. She had significant back pain radiating down her right leg for many years. In December,, she underwent a L4/5 TLIF, and after the surgery the pain in her right leg improved, as did the footdrop. She still had significant pain in her back. She had been referred to Dr. Tolliver in the [facility] and saw me in June, for medical marijuana. She still had pain in her her thoracic area. She had an MRI of her thoracic spine. She also had seen neurology for headaches and was diagnosed with pseudotumor cerebri , treated initially with Diamox, and then had a DEV OPS ENGINEER shunt placed on April 10, 2019. Her MRI of her thoracic spine showed a herniated disc at T10/11 and a Syrinx at T4-9 and T11-12. She had been placed on Tramadol by Dr. Tolliver. She had seen Dr. Steiner. This morning she was taken to the OR and underwent a T10/11 MIS and fusion from T10/11. I am asked to assist in pain control PAST MEDICAL HISTORY: As above, hypothyroidism, pseudotumor cerebri Allergies Allergy/AdvReac Type Severity Reaction Status Date / Time codeine Allergy Severe Vomiting Verified 05/24/19 06:30 Current Medications Dimenhydrinate (Dramamine Iv*) 25 mg IV PUSH ONCE PRN PRN Reason: NAUSEA/VOMITING Last Admin: 05/24/19 17:38 Dose: 25 mg Diphenhydramine HCl (Benadryl Iv*) 25 mg IV ONCE PRN PRN Reason: ITCHING Famotidine (Pepcid Iv*) 20 mg IV ONCE ONE Stop: 05/24/19 06:01 Last Admin: 05/24/19 06:36 Dose: 20 mg Fentanyl Citrate (Fentanyl*) 50 mcg IV Q5M PRN PRN Reason: PAIN - MODERATE Last Admin: 05/24/19 18:22 Dose: 50 mcg Fentanyl Citrate (Fentanyl*) 25 mcg IV Q5M PRN PRN Reason: PAIN - MODERATE Lactated Ringer's (Lactated Ringers 1000 Ml Bag*) 1,000 mls @ 125 mls/hr IV PER RATE MANUEL Last Admin: 05/24/19 06:35 Dose: 125 mls/hr Lactated Ringer's (Lactated Ringers 1000 Ml Bag*) 1,000 mls @ 75 mls/hr IV .per rate MANUEL Lidocaine/Sodium Bicarbonate (Buffered Lidocaine 1% Syrin*) 0.2 ml INTRADERM ONCE ONE Stop: 05/20/19 12:18 Last Admin: 05/24/19 06:35 Dose: Not Given Naloxone HCl (Narcan*) 0.08 mg IV Q2M PRN PRN Reason: severe induced resp depression Prochlorperazine Edisylate (Compazine Inj*) 5 mg IV ONCE PRN PRN Reason: NAUSEA/VOMITING Last Admin: 05/24/19 17:47 Dose: 5 mg SOCIAL HISTORY: Non Smoker, non drinker, lives by herself in a trailer with 4 steps to enter. Son will be staying with her after discharge. Was working at [employer] in [place]. ROS: No SOB or CP. Some shoulder pain from OR table positioning Vital Signs Temp Pulse Resp BP Pulse Ox 97.3 F 102 16 125/91 90 05/24/19 17:25 05/24/19 18:15 05/24/19 18:22 05/24/19 18:15 05/24/19 18:15 EXAM: HEENT: EOMI, on O2 via NC LUNGS: Clear, decreased BS HEART: Reg rhythm ABDOMEN: Soft EXTREMITIES: Normal tone NEUROLOGIC: A&O. Can move all 4 extremities ASSESSMENT: 1. T10/11 MIS Discectomy and Fusion 2. Recent DEV OPS ENGINEER shunt for Pseudotumor Cerebri PLAN: She was on minimal pain meds prior to surgery, so she should get by with oxycodone. I will order bowel medications and a small amount of gabapentin. Will avoid Morphine given her codeine allergy (though vomiting is a pretty common side effect of codeine). I will follow
[2019-05-24] MEDS ORDERED: oxyCODONE TAB* 5 MG TAB PO PRN (18:41)
[2019-05-24] MEDS ORDERED: Senna TAB 8.6 mg* TAB PO PRN (18:42)
--- NOTE | 2019-05-24 19:55 | CONS ---
CC: Dr. Monse Chahal; Dr. Ramone Steiner* HOSPITAL MEDICINE CONSULTATION: DATE OF CONSULT: 05/24/19 PRIMARY CARE PHYSICIAN: Dr. Monse Chahal. NEUROSURGEON: Dr. Ramone Steiner. ATTENDING PHYSICIAN: Dr. David Cadet. REASON FOR CONSULT: Co-medical management. HISTORY OF PRESENT ILLNESS: I will refer you to the history and physical by Dr. Steiner for complete details. Ms. Larkin is a 54-year-old female with past medical history of obstructive sleep apnea; hypothyroidism; hyperlipidemia ; and pseudotumor cerebri, status post MATERIAL CONTROL SPECIALIST shunt placement, who presents to [facility] today for an elective surgical treatment for back pain. The patient has had significant back pain for an unknown period of time. Ultimately, Dr. Steiner felt as though there was likely a thoracic disk herniation at T10- T11 causing myelopathy and episodes of bowel and bladder incontinence. Today, the patient did undergo a T10- T11 diskectomy, decompression and fusion with Dr. Steiner. Reportedly, she did well during surgery. The surgery was difficult, but there were no significant complications. On my exam, Ms. Larkin is still very sedated from anesthesia, though she does report back and right arm pain. The arm pain is up to a 6/10 and the back pain is 4/10. She describes the pain as burning. She is also complaining of being thirsty, though offers no other complaints. She denies any chest pain, cough, shortness of breath, or focal weakness. PAST MEDICAL HISTORY: 1. Hyperlipidemia. 2. Depression. 3. Hypothyroidism. 4. Obstructive sleep apnea. 5. Pseudotumor cerebri. PAST SURGICAL HISTORY: 1. MATERIAL CONTROL SPECIALIST shunt placement in March 2019. HOME MEDICATIONS: 1. Acetaminophen 500 mg p.o. q.4 hours p.r.n. pain. 2. Atorvastatin 20 mg p.o. at bedtime. 3. Vitamin B12 1000 mcg p.o. daily. 4. GenTeal Tears 1 drop both eyes 4 times daily p.r.n. dry eye. 5. Fluoxetine 20 mg p.o. daily. 6. Ibuprofen 200 to 600 mg p.o. q.6 hours p.r.n. pain. 7. Levothyroxine 100 mcg p.o. daily. 8. Multivitamin 1 tab p.o. daily. 9. Pantoprazole 40 mg p.o. daily. ALLERGIES: CODEINE. FAMILY HISTORY: Father had a history of hypertension and bone cancer and at the age of 51. She had a grandmother with diabetes and a brother with non- Hodgkin's lymphoma who at 49. SOCIAL HISTORY: The patient denies any tobacco, alcohol, or recreational drug use. Her son, Alan, will be her surrogate decision maker in the event she is unable to make her own decisions. REVIEW OF SYSTEMS: An 11-point review of systems was performed and all the pertinent positive and negative findings are in the HPI. All other systems are negative. PHYSICAL EXAM: Ms. Larkin is a well-developed, well-nourished, obese white woman , lying in bed, in no acute distress. She appears her stated age. Vital Signs : Temp 97.3, heart rate 99, respiratory rate 16, oxygen saturation 90% on 4 L, blood pressure 125/91. HEENT: Head is atraumatic, normocephalic. Visual hernandez are grossly intact. Pupils equal and round. Oral mucous membranes moist. Neck: Trachea at midline. No lymphadenopathy. Respiratory: Symmetrical chest expansion. No chest wall deformities. Lungs clear to auscultation throughout. No rhonchi, wheezes, or rales. Cardiovascular: Regular rate and rhythm. S1, S2 present. No murmurs, rubs, or gallops. No JVD. Abdomen: Soft, nontender to palpation. Bowel sounds normoactive. Neuro : Drowsy, but arousable and oriented x4. Moves all extremities. DIAGNOSTIC STUDIES/LAB DATA: The patient had blood work on 05/17/19, which showed WBC 8.7, RBC 5.36, hemoglobin 15.1, hematocrit 47, platelets 299. INR 0.91. Sodium 143, potassium 5.1, chloride 105, carbon dioxide 34, BUN 14, creatinine 0.72, glucose 78. Urinalysis with leukocyte esterase, white blood cells and red blood cells, but no bacteria or nitrites. ASSESSMENT AND PLAN: Ms. Larkin is a 54-year-old female with past medical history of hyperlipidemia, depression, hypothyroidism, obstructive sleep apnea and pseudotumor cerebri, who presents to [facility] today for an elective thoracic spine surgery and ultimately underwent a T10-T11 diskectomy, decompression and fusion. [facility] Medicine has been asked to consult for co-medical management for: 1. T10-T11 diskectomy and fusion. Management per Neurosurgery. Dr. Steiner did mention to me that the patient should be maintained lying at 20 degrees and can be elevated to 30 degrees for short periods while eating. This will be for 2 to 3 days postoperatively. She will also have neuro checks, which have been ordered by Neurosurgery and Dr. Arreola has been consulted for assistance with pain management. 2. Hyperlipidemia. Continue atorvastatin. 3. Depression. Continue fluoxetine. 4. Hypothyroidism. Continue levothyroxine. 5. Gastroesophageal reflux disease. Continue pantoprazole. 6. FEN: The patient does not require any fluid resuscitation or electrolyte repletion. She can have a regular diet. 7. Code status: The patient will be a full code. 8. DVT prophylaxis: Per Neurosurgery. TIME SPENT: Approximately 40 minutes was spent on this consultation. This case has been reviewed with my attending, Dr. Cadet, who is in agreement with the plan of care. GUILLERMO JENKINS, [place] [id number]/[facility] #: [id number] YADIRA
[2019-05-24] MEDS: Docusate CAP* 100 MG PO SCH (20:54)
[2019-05-24] MEDS: Atorvastatin* 20 MG TAB PO SCH (20:54)
[2019-05-24] MEDS: oxyCODONE TAB* 5 MG TAB PO PRN (20:54)
[2019-05-24] MEDS: Gabapentin CAP(*) 100 MG PO SCH (20:54)
[2019-05-24] MEDS: HYDROmorphone INJ1* 1 MG/ML SYRINGE IV SLOW PU PRN (22:00)
[2019-05-25] MEDS: oxyCODONE TAB* 5 MG TAB PO PRN ×6 (00:08→22:38)
--- NOTE | 2019-05-25 00:36 | OP ---
OPERATIVE REPORT: DATE OF SURGERY: 05/24/19 - Inpatient, room UCD39-54 DATE OF : 63 SURGEON: Ramone Steiner MD. ELEMENTARY READING SPECIALIST: Christen Andrea, surgical PA. ANESTHESIOLOGIST: Kulwinder Arreguin MD ANESTHESIA: General. PRE-OP DIAGNOSES: T10-11 calcified herniated nucleus pulposus, myelopathy. POST-OP DIAGNOSES: T10-11 calcified herniated nucleus pulposus, myelopathy. OPERATIVE PROCEDURE: The patient underwent a left T10-11 transfacet diskectomy with arthrodesis, T10-11, with interbody cage, posterolateral arthrodesis with DBX and autologous local bone graft, with instrumentation with pedicle screws placement of T11 and T10 bilaterally, with intraoperative navigation, intraoperative monitoring. ESTIMATED BLOOD LOSS: 200 cc. COMPLICATIONS: None. SUMMARY: The patient is a very pleasant 54-year-old female with complaints of back pain radiating mostly to her left lower extremity and numbness in the lower thoracic area with findings of myelopathy and MRI findings consistent with a giant central calcified herniated disk. The patient was offered several surgical options and conservative treatment options, but because of failure of conservative treatment modalities she elected to proceed with the posterior approach, understanding the advantages and disadvantages of an anterior/lateral approach versus a posterior approach. After explaining expectations, limitations, and possible complications of the procedure to the patient and her family, including her son, her daughter, and her mother, with complications including, but not limited to bleeding, infection, risk of injury to adjacent structures, coma, paralysis, , need for additional procedure, anesthesia risks, stroke, blindness, cancer, instability, hardware failure, adjacent level disease, pseudoarthrosis, spinal fluid leak, injury to intraabdominal abdominal or intra- thoracic contents, including blood vessels, lungs, development of pneumothorax and need for chest tube placement, loss of blood and bowel control , loss of function in her extremities, paralysis, scar formation, development of postoperative hematoma, need for additional procedures, proximal or distal junctional kyphosis or failure, need for prolonged ICU stay, tracheostomy or gastrostomy, anesthesia risk. The patient was agreeable to proceed with surgery and informed consent was obtained. The patient understood that her condition may not improve and in fact may get worse after the surgery and that she may need to have additional procedures in the future. She understood that the purpose of the surgery is to stabilize her condition and improvement may not be possible. The patient understood that operative plan may be modified according to the intraoperative findings and conditions and that the procedure may be abandoned or done in more than one stages. She understood the possibly of incomplete diskectomy or extension of the arthrodesis to several levels either at this session or in future procedures. The patient understood that she may require prolonged ICU stay or prolonged rehabilitation, she may require dependence on the ventilator, need for tracheostomy or gastrostomy, scar formation. DESCRIPTION OF PROCEDURE: The patient was brought to the operating room and was placed under general anesthesia by the anesthesia team. She was carefully positioned prone on the Raza table and all bony prominences were meticulously padded. Her skin was prepped and draped in a standard fashion. After appropriate surgical pause and patient identification, a midline incision was performed at the area of approximately T9 to L1, after infiltrating the skin with local anesthetic and Marcaine and using #10 surgical blade. The incision was carried down to the dorsal fascia with the use of Bovie cautery and self-retaining retractor was introduced into the field. The dorsal fascia was divided on both sides of the midline with the use of Bovie cautery and the platysma muscle was elevated in subperiosteal fashion with use of periosteal elevators and Bovie cautery. Intraoperative O-arm imaging with plain x-rays confirmed the appropriate surgical level and after placing the pin for the navigation star at the spinous process of L1, intraoperative O-arm imaging was obtained. The appropriate surgical level was then identified and was confirmed , compared to the preoperative CT scan, as well as with the presence of the big calcified herniated nucleus pulposus at that level. Pedicle screws were then placed at the vertebrae of T11 and T10 with the use of intraoperative navigation. Entry Level Financial Analyst holes were started with high speed drill and awl-tip tap was used to cannulate the pedicles. After probing the pedicles and confirming bony franklin at all levels, [employer] pedicle screws were inserted at the T10 and T11 pedicles; 5.5 x 40 mm screws were used for all levels. Then attention was brought to perform laminectomy at T10 and T11. A wide laminectomy was performed with the use of Leksell rongeurs, 1 mm Kerrison punches, and high speed drill. Significant amount of cord compression was identified, as expected from preoperative imaging. Attention was brought to gradually decompress the spinal canal. At the end of the decompression, the thecal sac was completely free of any pressure phenomenon. Then a temporary sarah was placed at the right T10 and T11 pedicle screws and high speed drill and Kerrison punches were used to perform a wide facetectomy at the left T11-12. The pedicle of T11 was skeletonized with the use of high speed drill and Kerrison punches. While the left T10 nerve root was identified and protected throughout out the case. A small partial thickness dehiscence of the dura was identified after the exposure without signs of CSF throughout the case. Then attention was brought to perform a diskectomy. With the use of intraoperative navigation the disk space was identified and was entered with #11 surgical blade. Big calcified osteophytes surrounding the protruded herniated disc were identified, as expected from the preoperative imaging. Through a careful approach and with the use of microscopic magnification and stereotactic navigation the diskectomy was carried with use of pituitary rongeurs, high speed drill, and Kerrison punches. The calcified portion of the disk was gently from the anterior portion of thecal sac and was then gently removed with down pushing curettes to the created void into the disc space and surrounding end plates. The 30-degree orthopedic endoscope was used in order to be able to see the lateral and the anterior part of the thecal sac to confirm that there were no adhesions to the dura or signs of durotomy or CSF leak during the diskectomy. At the end of the decompression the thecal sac was found to be free of any pressure phenomenon circumferentially, while the anterior part of the dura was found to be intact with the use of 30-degree angled endoscope. Then attention was brought to perform an interbody arthrodesis. After preparation of the disk space, a 7 mm Elevate interbody cage from [employer] was inserted after being filled with locally harvested local bone graft during the decompression and the facetectomy portion of the procedure, as well as DBX. A slight expansion of the cage was performed to ensure excellent contact with the endplates, excellent support of the endplates , and minimize the risk of retropulsion. Then two 40 mm cobalt-chrome rods were contoured in shape and were secured in place with screw head caps. Intraoperative OR imaging confirmed excellent placement of all hardware and excellent decompression of the spinal canal. The wound was then copiously irrigated and after meticulous inspection and multiple Valsalva maneuver, no signs of cerebral spinal fluid leak was identified. Nevertheless, because of the partial thickness dehiscence of the dura, we elected to reinforce the dura with layers of DuraGen and Tisseel. Valsalva maneuver after the placement of the dura reinforcement did not reveal any signs of CSF leak. Then the screw head caps were secured and the screws were slightly compressed. The high speed drill was used to decorticate the exposed bony surface for the posterolateral arthrodesis on both sides and bone grafts in the form of morselized locally harvested bony graft, as well as the DBX was placed on bilateral sides. The wound was then copiously irrigated and after confirmation of meticulous hemostasis and meticulous inspection, and over an epidural Aaron drain as well as subfascial Aaron drain, was closed in layers with 0 interrupted Vicryl sutures to approximate the dorsal fascia with second layer of free running 0 Vicryl sutures to reinforce the closure of dorsal fossa as well as a mixture of 0 and 2-0 inverted and interrupted Vicryl sutures to approximate the subcutaneous tissue, as well as #1 Prolene interrupted- running sutures to approximate the skin. At the end of the procedure all counts were reported to be correct. The patient remained hemodynamically stable throughout the case. Intraoperative electrophysiological monitoring remained stable throughout the case. The patient was then turned supine, was extubated, and was transferred to Recovery in excellent condition. The case was done with the assistance of the surgical PA because of the complexity of the case. [id number]/[facility] #: [id number] YADIRA
[2019-05-25] MEDS: HYDROmorphone INJ1* 1 MG/ML SYRINGE IV SLOW PU PRN ×2 (05:11→13:08)
[2019-05-25 05:47] LABS: ABS Lymphocytes 1.2 10^3/ul (1.0-4.8); ABS Neutrophils 9.2 10^3/ul (1.5-7.7); Hematocrit 38 % (35-47); Hemoglobin 12.2 g/dL (12.0-16.0); Lymphocyte % 10.8 %; Mean Corpuscular HGB Conc 32 g/dL (31-36); Mean Corpuscular Hemoglobin 28 pg (27-31); Mean Corpuscular Volume 88 fL (80-97); Mean Platelet Volume 8.2 fL (7.4-10.4); Platelet Count 236 10^3/uL (150-450); Red Blood Count 4.33 10^6 /uL (3.70-4.87); Red Cell Distribution Width 15 % (10-15); White Blood Count 11.5 10^3/uL (3.5-10.8)
[2019-05-25] MEDS: Levothyroxine TAB* 100 MCG TAB PO SCH (05:48)
[2019-05-25 06:12] LABS: Calcium 8.1 mg/dL (8.6-10.3); Potassium 4.6 mmol/L (3.5-5.0); Total Bilirubin 0.4 mg/dL (0.2-1.0)
[2019-05-25 06:18] LABS: Albumin/Globulin Ratio 1.9 (1-3); BUN/Creatinine Ratio 20.6 (8-20); EGFR African American 118.7 (>60); EGFR Non-African American 98.1 (>60); Globulin 1.6 g/dL (2-4); Total Protein 4.6 g/dL (6.4-8.9)
--- NOTE | 2019-05-25 08:52 | PN ---
Progress Note - Progress Note Date of Service: 05/25/19 SOAP: Subjective: [] 54 y/o female s/p left side decompression microdiscectomy with arthrodesis at T10/T11 POD # 1, patient denies any headache, nausea or vomiting. She reports increased pain with movement. She was evaluated by Dr. Arreola, who started patient on Oxycodone for pain management, which seems to tolerate, but complains of muscle spasm. Patient is also being followed by medicine for other cormorbidites At this time she has notice a difference in her leg strength, but been bed rest and has not had chance to ambulate. She has 2 ALBERT drains that had little output overnight ALBERT # 1 put 30 ml and ALBERT# 5 ml. Overall she has been stable overnight. Objective: [] Vital Signs - On Arrival Temp Pulse Resp BP Pulse Ox 98.0 F 100 18 116/76 93 05/17/19 10:30 05/17/19 10:30 05/17/19 10:30 05/17/19 10:30 05/17/19 10:30 Vital Signs - Most Recent Temp Pulse Resp BP Pulse Ox 98.3 F 100 20 131/100 96 05/25/19 06:00 05/25/19 07:30 05/25/19 07:30 05/25/19 07:30 05/25/19 07:30 Physical Exam: Patient laying in bed with head HOD at 20 degrees, comfortable, NAD Neuro: GCS 15, A&O x3 CN II - XII gorssly intact, sensation intact with light touch. UPE motor strength 5/5, bilateral LE strength 5/5 with hip flexion, EHL 5/5, plantar flexion 5/5 Wound: small of amount of blood seen on dressing at superior and inferior end of incision. Drains intact Assessment: 54 y/o female s/p left side decompression microdiscectomy with arthrodesis at T10/T11 POD # 1, having some post procedure pain, but overall doing well. Plan: 1) Follow up X rays of thoracic spine 2) Give muscle relaxer 3)Will consider D/C drain possible todayt 4) pain management as needed <Christen Andrea - Last Filed: 05/25/19 08:36> - Progress Note SOAP: Patient seen and examined. Agree with above. Tolerated procedure well yesterday. On regular floor. Bed rest x 48 h. No BAUER. Vision good. Tolerates po well. Walker. Wound s,c,d Drain output noted. No signs of CSF leak. AAOx3, CASSI, CN II-XII grossly intact. Motor 5/5 all extremities, Sensory grossly intact to light touch. Will monitor VS, Neurochecks Monitor drain output, likely dc in am Bed rest for 48 h May use bedside commode. HOB 30' when having meal XR reveals good placement of hardware and alignment of the T spine. Appreciate IM, Dr Estrada's care. Keyur Steiner MD <Ramone Steiner - Last Filed: 05/25/19 18:37>
[2019-05-25] MEDS ORDERED: Cyclobenzaprine TAB* 10 MG ONE (08:57)
[2019-05-25] MEDS: Gabapentin CAP(*) 100 MG PO SCH ×2 (09:01→20:55)
[2019-05-25] MEDS: FLUoxetine CAP* 20 MG PO SCH (09:01)
[2019-05-25] MEDS: Docusate CAP* 100 MG PO SCH ×2 (09:01→20:57)
[2019-05-25] MEDS: Cyclobenzaprine TAB* 10 MG PO PRN ×2 (09:01→14:15)
[2019-05-25] MEDS: Cyanocobalamin TAB* 500 MCG PO SCH (13:01)
[2019-05-25] MEDS ORDERED: oxyCODONE TAB* 5 MG TAB PO PRN (13:46)
--- NOTE | 2019-05-25 14:03 | PN ---
Progress Note - Progress Note Date of Service: 05/25/19 Note: INPATIENT PAIN -PROGRESS NOTE Ashli visited. She had a lot of pain last night and required two doses of IV dilaudid. I will increase her oxycodone to 10-15 mg every 4 hours as needed. She can continue IV dilaudid 0.5 mg IV Q 6 hours as needed. Neurosurgery has ordered Flexeril for spasms. She is not allowed to sit up yet. Last bowel movement was Thursday. Current Medications Atorvastatin Calcium (Lipitor*) 20 mg PO BEDTIME [facility] Last Admin: 05/24/19 20:54 Dose: 20 mg Cyanocobalamin (Vitamin B12 Tab*) 1,000 mcg PO 1230 [facility] Last Admin: 05/25/19 13:01 Dose: 1,000 mcg Cyclobenzaprine HCl (Flexeril Tab*) 10 mg PO TID PRN PRN Reason: SPASMS - BACK Last Admin: 05/25/19 09:01 Dose: 10 mg Docusate Sodium (Colace Cap*) 100 mg PO BID [facility] Last Admin: 05/25/19 09:01 Dose: 100 mg Fluoxetine HCl (Prozac Cap*) 20 mg PO QAM [facility] Last Admin: 05/25/19 09:01 Dose: 20 mg Gabapentin (Neurontin Cap(*)) 100 mg PO BID [facility] Last Admin: 05/25/19 09:01 Dose: 100 mg Hydromorphone HCl (Dilaudid Inj1s*) 0.5 mg IV SLOW PU Q6H PRN PRN Reason: PAIN - SEVERE Last Admin: 05/25/19 13:08 Dose: 0.5 mg Lactated Ringer's (Lactated Ringers 1000 Ml Bag*) 1,000 mls @ 75 mls/hr IV .per rate [facility] Last Admin: 05/25/19 01:18 Dose: 75 mls/hr Levothyroxine Sodium (Synthroid Tab*) 100 mcg PO QAM@0600 [facility] Last Admin: 05/25/19 05:48 Dose: 100 mcg Magnesium Hydroxide (Milk Of Magnesia Liq*) 30 ml PO Q6H PRN PRN Reason: CONSTIPATION Oxycodone HCl (Roxycodone Tab*) 15 mg PO Q4H PRN PRN Reason: PAIN - SEVERE Oxycodone HCl (Roxycodone Tab*) 10 mg PO Q4H PRN PRN Reason: PAIN - MODERATE Pantoprazole Sodium (Protonix Tab*) 40 mg PO 1600 MANUEL Senna (Senokot 8.6 Mg Tab*) 2 tab PO BEDTIME PRN PRN Reason: CONSTIPATION Vital Signs Temp Pulse Resp BP Pulse Ox 98.6 F 110 19 139/78 89 05/25/19 12:00 05/25/19 13:00 05/25/19 13:08 05/25/19 13:00 05/25/19 13:00 EXAM: LUNGS: Mostly clear HEART: regular ABDOMEN: Soft EXTREMITIES: Normal tone NEUROLOGIC: Can move legs and arms. ASSESSMENT: 1. Microdiscectomy with arthrodesis T10/11 2. 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 Continue cyclobenzaprine and Neurontin
[2019-05-25] MEDS: Pantoprazole TAB * 40 MG TAB PO SCH (17:15)
[2019-05-25] MEDS: Senna TAB 8.6 mg* TAB PO SCH (20:56)
[2019-05-25] MEDS: Atorvastatin* 20 MG TAB PO SCH (20:57)
[2019-05-25] MEDS: Ibuprofen TAB* 600 MG PO PRN (21:45)
[2019-05-26] MEDS: oxyCODONE TAB* 5 MG TAB PO PRN ×3 (03:36→12:38)
[2019-05-26] MEDS: Levothyroxine TAB* 100 MCG TAB PO SCH (05:40)
[2019-05-26] MEDS: Ibuprofen TAB* 600 MG PO PRN ×3 (05:40→21:45)
[2019-05-26] MEDS: Gabapentin CAP(*) 100 MG PO SCH ×2 (08:47→21:44)
[2019-05-26] MEDS: FLUoxetine CAP* 20 MG PO SCH (08:48)
[2019-05-26] MEDS: Magnesium Hydroxide LIQ* 30 ML UDC PO PRN ×2 (08:48→15:54)
[2019-05-26] MEDS: Docusate CAP* 100 MG PO SCH ×2 (08:48→21:43)
[2019-05-26] MEDS: Cyanocobalamin TAB* 500 MCG PO SCH (12:38)
--- NOTE | 2019-05-26 13:49 | PN ---
Progress Note - Progress Note Date of Service: 05/26/19 SOAP: Subjective: [] 54 y/o female s/p left side decompression microdiscectomy with arthrodesis at T10/T11 POD # 2, Her pain is has been better controlled over the last 24 hours. She reports feeling better today and is hoping to be able get out of bed today. She has been avoid voiding and passing flatulence, but has not moved her bowels. Overall patient has been stable overnight. Objective: Vital Signs: Temp Pulse Resp BP Pulse Ox 97.9 F 86 18 103/56 95 05/26/19 11:27 05/26/19 11:27 05/26/19 12:38 05/26/19 11:27 05/26/19 11:27 Physical exam: Patient laying bed comfortable, NAD Neruo GCS 15 A&O x 4, CN II - XII grossly intact, EOM intact upper extremity motor strength 5/5 bilat, Lower extremity motor strength 5/5 bilat with hip flexion, knee flexion and extension, EHL 5/5 Bilat. Wound: small amount of bleeding seen on bandage, sutures intact, no edema , drainage coming from wound. drains intact on half bulb suction. Assessment: []54 y/o female s/p left side decompression microdiscectomy with arthrodesis at T10/T11 POD # 2, patient doing better, pain well managed. Her drains put 40 in #1 over night and 25 #2 over night. She has been stable overnight. Plan: 1) Change bandage 2) Discontinue drain 3) pain control as needed 4) Will gradually get her out of bed, will increase HOB by 10 degrees each hour until patient is sitting upright. Ok sit up in chair by the evening, ambulate with assistance. 5) Consider Discharge for tomorrow []
[2019-05-26] MEDS: HYDROmorphone INJ1* 1 MG/ML SYRINGE IV SLOW PU PRN (14:39)
[2019-05-26] MEDS: Pantoprazole TAB * 40 MG TAB PO SCH (15:27)
--- NOTE | 2019-05-26 15:37 | PN ---
Subjective Date of Service: 05/26/19 Interval History: Pain control OK, appetite good. Constipated. Objective Active Medications: Atorvastatin Calcium (Lipitor*) 20 mg PO BEDTIME [facility] Last Admin: 05/25/19 20:57 Dose: 20 mg Cyanocobalamin (Vitamin B12 Tab*) 1,000 mcg PO 1230 [facility] Last Admin: 05/26/19 12:38 Dose: 1,000 mcg Cyclobenzaprine HCl (Flexeril Tab*) 10 mg PO TID PRN PRN Reason: SPASMS - BACK Last Admin: 05/25/19 14:15 Dose: 10 mg Docusate Sodium (Colace Cap*) 100 mg PO BID [facility] Last Admin: 05/26/19 08:48 Dose: 100 mg Fluoxetine HCl (Prozac Cap*) 20 mg PO QAM [facility] Last Admin: 05/26/19 08:48 Dose: 20 mg Gabapentin (Neurontin Cap(*)) 100 mg PO BID [facility] Last Admin: 05/26/19 08:47 Dose: 100 mg Hydromorphone HCl (Dilaudid Inj1s*) 0.5 mg IV SLOW PU Q6H PRN PRN Reason: PAIN - SEVERE Stop: 05/26/19 17:00 Last Admin: 05/26/19 14:39 Dose: 0.5 mg Ibuprofen (Motrin Tab*) 600 mg PO Q6H PRN PRN Reason: HEADACHE Last Admin: 05/26/19 15:26 Dose: 600 mg Levothyroxine Sodium (Synthroid Tab*) 100 mcg PO QAM@0600 [facility] Last Admin: 05/26/19 05:40 Dose: 100 mcg Magnesium Hydroxide (Milk Of Magnesia Liq*) 30 ml PO Q6H PRN PRN Reason: CONSTIPATION Last Admin: 05/26/19 08:48 Dose: 30 ml Oxycodone HCl (Roxycodone Tab*) 15 mg PO Q4H PRN PRN Reason: PAIN - SEVERE Last Admin: 05/26/19 12:38 Dose: 15 mg Oxycodone HCl (Roxycodone Tab*) 10 mg PO Q4H PRN PRN Reason: PAIN - MODERATE Pantoprazole Sodium (Protonix Tab*) 40 mg PO 1600 [facility] Last Admin: 05/26/19 15:27 Dose: 40 mg Polyethylene Glycol/Electrolytes (Miralax*) 17 gm PO 0800,2100 [facility] Senna (Senokot 8.6 Mg Tab*) 2 tab PO BEDTIME [facility] Last Admin: 05/25/19 20:56 Dose: 2 tab Vital Signs - 8 hr 05/26/19 05/26/19 05/26/19 07:42 07:59 08:47 Temperature Pulse Rate Respiratory 18 16 Rate Blood Pressure (mmHg) O2 Sat by Pulse 98 Oximetry 05/26/19 05/26/19 05/26/19 09:14 09:42 11:27 Temperature 97.9 F Pulse Rate 86 Respiratory 16 16 16 Rate Blood Pressure 103/56 (mmHg) O2 Sat by Pulse 95 Oximetry 05/26/19 05/26/19 05/26/19 11:36 12:38 14:39 Temperature Pulse Rate Respiratory 16 18 16 Rate Blood Pressure (mmHg) O2 Sat by Pulse Oximetry 05/26/19 15:19 Temperature 98.9 F Pulse Rate 96 Respiratory 18 Rate Blood Pressure 120/69 (mmHg) O2 Sat by Pulse 92 Oximetry Oxygen Devices in Use Now: Nasal Cannula Appearance: Alert, partly up in bed. In good spirits. Looks comfortable. Eyes: No Scleral Icterus Extremities: No Edema, No Clubbing, Cyanosis, - Skin: No Rash or Ulcers, No Nodules or Sclerosis, - Neurological: Alert and Oriented x 3, NL Sensation Result Diagrams: 05/25/19 05:25 05/25/19 05:25 Microbiology and Other Data: Microbiology 05/24/19 20:20 Nasal Screen MRSA (PCR) - Final Nasal Mrsa Not Detected Assess/Plan/Problems-Billing Assessment: - Patient Problems (1) Chronic back pain Current Visit: No Status: Acute Code(s): M54.9 - DORSALGIA, UNSPECIFIED; G89.29 - OTHER CHRONIC PAIN SNOMED Code(s): 217553847 Comment: T10-T11 surgery 05/25/19, mangement per Dr. Steiner. (2) Hypothyroid Current Visit: No Status: Acute Code(s): E03.9 - HYPOTHYROIDISM, UNSPECIFIED SNOMED Code(s): 98078171 Comment: - Continue synthroid TSH 0.75 04/2019. (3) Constipation Current Visit: Yes Status: Acute Code(s): K59.00 - CONSTIPATION, UNSPECIFIED SNOMED Code(s): 19406791 Comment: Had MOM 05/26, no results. BID PEG ordered. (4) Morbid exogenous obesity Current Visit: Yes Status: Acute Code(s): E66.01 - MORBID (SEVERE) OBESITY DUE TO EXCESS CALORIES SNOMED Code(s): 496610278 Comment: BMI 42.5.
[2019-05-26] MEDS: Atorvastatin* 20 MG TAB PO SCH (21:44)
[2019-05-26] MEDS: Polyethylene Glycol 3350* 17 GM PACKET PO SCH (21:44)
[2019-05-26] MEDS: Cyclobenzaprine TAB* 10 MG PO PRN (21:45)
[2019-05-26] MEDS: Senna TAB 8.6 mg* TAB PO SCH (21:49)
[2019-05-27] MEDS: oxyCODONE TAB* 5 MG TAB PO PRN ×4 (03:39→17:14)
[2019-05-27] MEDS: Levothyroxine TAB* 100 MCG TAB PO SCH (05:31)
[2019-05-27] MEDS: Ibuprofen TAB* 600 MG PO PRN (05:31)
[2019-05-27] MEDS: FLUoxetine CAP* 20 MG PO SCH (07:56)
[2019-05-27] MEDS: Docusate CAP* 100 MG PO SCH (07:57)
[2019-05-27] MEDS: Gabapentin CAP(*) 100 MG PO SCH (07:57)
[2019-05-27] MEDS: Polyethylene Glycol 3350* 17 GM PACKET PO SCH (08:00)
--- NOTE | 2019-05-27 08:33 | PN ---
Progress Note - Progress Note Date of Service: 05/27/19 SOAP: Subjective: []54 y/o female s/p left side decompression microdiscectomy with arthrodesis at T10/T11 POD # 3, Patient is doing well no longer on bed rest, has been sitting up ambulating to rest room, but has not walked with PT. She reports that her mid back numbness has improved. There is some swelling at the superior end of the wound that was reported yesterday, which appears to be unchanged this morning, Also reports occasional headache that is relieved with Tylenol. She has been able to void and reports having a bowel movement. Overall she is seems to make gradual improvements each day. Objective: [] Initial Vitals Temp Pulse Resp BP Pulse Ox 98.0 F 100 18 116/76 93 05/17/19 10:30 05/17/19 10:30 05/17/19 10:30 05/17/19 10:30 05/17/19 10:30 Physical Exam: Neruo GCS 15 A&O x 4, CN II - XII grossly intact, EOM intact upper extremity motor strength 5/5 bilat, Lower extremity motor strength 5/5 bilat with hip flexion, knee flexion and extension, EHL 5/5 Bilat Wound: small amount of blood seen on dressing, soft swelling at superior end of incision, no erythema. Assessment: []54 y/o female s/p left side decompression microdiscectomy with arthrodesis at T10/T11 POD #3, patient is recovering well, she neurologically intact. There is appears to be some swelling around the wound, which is a suspected hematoma. Overall patient is doing well, still needs to walk with PT, will potentially be discharged today. Plan: []1) Pain control as needed 2) Walk with PT 3) Discharge planning
[2019-05-27] MEDS: Cyanocobalamin TAB* 500 MCG PO SCH (12:50)
[2019-05-27 15:31] VITALS: BP 124/71
[2019-05-27] MEDS: Cyclobenzaprine TAB* 10 MG PO PRN (16:09)
[2019-05-27] MEDS: Pantoprazole TAB * 40 MG TAB PO SCH (16:09)
--- NOTE | 2019-06-06 12:02 | DS ---
DISCHARGE SUMMARY: DATE OF ADMISSION: 05/24/19 DATE OF DISCHARGE: 05/27/19 ATTENDING PROVIDER: Dr. Steiner * (DICTATED BY AUSTIN SANTANA) PREOPERATIVE DIAGNOSIS: T10-T11 calcified herniated nucleus pulposus with myelopathy. POSTOPERATIVE DIAGNOSIS: T10-T11 calcified herniated nucleus pulposus with myelopathy. DISPOSITION ON DISCHARGE: Good. PLACE OF DISCHARGE: Home. PROCEDURE: Left T10-T11 transfacet diskectomy with arthrodesis T10-T11 with interbody cages, posterolateral arthrodesis with DBX and autologous local bone graft with instrumentation with pedicle screws placement of T11 and T10 bilaterally with intraoperative navigation and intraoperative monitoring. HOSPITAL COURSE: This is a very pleasant 54-year-old female with complaints of back pain radiating mostly to her left lower extremity and numbness in the left lower thoracic area with findings of myelopathy and MRI findings consistent with a giant central calcified herniated disk. The patient was offered several surgical options and conservative treatment options, but because of failure of conservative treatment modalities, she elected to proceed with a posterior approach, understanding the advantages and disadvantages of the anterior and lateral approaches versus the posterior approach. After explaining expectations , limitations, and possible complications of the procedure to the patient and family, including her son, daughter, and her mother, the patient was consented for surgery. The patient did well with the surgery and was admitted to the ICU for observation for 24 hours. The patient did well, had no issues with headache , nausea, or vomiting. No signs of dural leak. Wound was soft, nontender to visual inspection. The patient was later the following day sent to short-stay unit for observation where she did well. She remained there for 2 days. Her pain was well controlled. The patient was able to ambulate after a day as her pain was better managed. She was able to void and had bowel movements, was able to walk with assistance, work with PT/OT. On 05/27/19, the patient was stable and recommended for discharge at that time. The patient was discharged home, was given discharge instructions which include no heavy lifting, bending, twisting. No driving. Also avoid hot tubs and pools. Follow up with primary care in 1 week. Follow up with Neurosurgery within 1 week. She was discharged with pain medications at that time for pain control. The patient understood instructions and went home with no issues. AUSTIN SANTANA [id number]/[facility] #: [id number] [facility]ITAL[facility]manda
== END 2019-05-27 17:40 | disposition home health service (06) | DRG 460 ==
LOC: AA 05:47 → ICU 19:10 → SSU 05-25 15:15
PROVIDERS: ADMIT Neurological Surgery; ATTEND Neurological Surgery
PROC: 0RB90ZZ Excision of Thoracic Vertebral Disc, Open Approach (ICD-10-PCS; 2019-05-24)
PROC: 4A11X4G Monitoring of Peripheral Nervous Electrical Activity, Intraoperative, External Approach (ICD-10-PCS; 2019-05-24)
PROC: 8E0WXBZ Computer Assisted Procedure of Trunk Region (ICD-10-PCS; 2019-05-24)
PROC: 0RG60AJ Fusion of Thoracic Vertebral Joint with Interbody Fusion Device, Posterior Approach, Anterior Column, Open Approach (ICD-10-PCS; principal; 2019-05-24 07:30)
DX: M51.04 Intervertebral disc disorders with myelopathy, thoracic region (principal); Z68.41 Body mass index [BMI] 40.0-44.9, adult; G89.29 Other chronic pain; E03.9 Hypothyroidism, unspecified; E78.5 Hyperlipidemia, unspecified; F32.9 Major depressive disorder, single episode, unspecified; G47.33 Obstructive sleep apnea (adult) (pediatric); E78.00 Pure hypercholesterolemia, unspecified; M25.78 Osteophyte, vertebrae; K21.9 Gastro-esophageal reflux disease without esophagitis; E66.01 Morbid (severe) obesity due to excess calories; K59.00 Constipation, unspecified; Z90.710 Acquired absence of both cervix and uterus; Z98.1 Arthrodesis status; Z88.6 Allergy status to analgesic agent; Z90.722 Acquired absence of ovaries, bilateral; Z87.891 Personal history of nicotine dependence
CPT/HCPCS: 36415; 72080; 76000; 80053; 85025; 87641; A9270-GY; C1713; C1776; G8978-GP-CI; G8979-GP-CI; G8980-GP-CI; J0330; J0690; J0780; J1100; J1170; J1240; J2250; J2704; J3010

== ENCOUNTER 2024-06-13 08:25 | Observation (INO) ==
[~2024-06-13 08:25] MED LIST changes: -Buffered Lidocaine 1% SYRIN* 1 ML/SYRINGE INTRADERM ONE; +Lidocaine 1% w EPI 1:100,000 MDV 20 ML VIAL ONE; +Midazolam 2 mg/2 ml VIAL 1 mg/ml 2 ml VIAL (2 mg) ONE; +Rocuronium 50 mg VIAL 10 mg/ml 5 ml VIAL (50 mg) ONE; +Thrombin 5,000 UNITS(BOVINE) for Ultrasound Guided Pseudoaneursym ONE; +ceFAZolin VIAL VIAL ONE; +fentaNYL 100 mcg/2 ml 50 MCG/ML VIAL ONE
[2024-06-13] MEDS ORDERED: Chlorhexidine MOUTHWASH 0.12% 15 ML UDC ONE (08:48)
[2024-06-13] MEDS ORDERED: fentaNYL 100 mcg/2 ml 50 MCG/ML VIAL IV PRN (08:54)
[2024-06-13] MEDS ORDERED: Ondansetron 4 mg VIAL 2 MG/ML 2 ml VIAL IV PRN ×2 (08:54→12:44)
[2024-06-13] MEDS ORDERED: Naloxone 0.4 mg VIAL 0.4 mg/ml 1 ml VIAL IV PRN (08:54)
[2024-06-13] MEDS ORDERED: Scopolamine 1 mg/72hr PATCH ONE (09:22)
[2024-06-13] MEDS: Scopolamine 1 mg/72hr PATCH TRANSDERM ONE (09:28)
[2024-06-13] MEDS ORDERED: ceFAZolin *3* GM in NS PREMIX 3 GM/100 ML BAG IV ONE (09:54)
[2024-06-13 10:38] LABS: Rapid COVID-19 Molecular Undetected (Undetected)
[2024-06-13] MEDS ORDERED: Ondansetron 4 mg VIAL 2 MG/ML 2 ml VIAL ONE (11:14)
[2024-06-13] MEDS ORDERED: Dexamethasone IV 4 MG/ML VIAL 1 ml VIAL ONE (11:14)
[2024-06-13] MEDS ORDERED: HYDROmorphone 0.5 MG/0.5 ML SYRINGE ONE (11:18)
[2024-06-13] MEDS ORDERED: Rocuronium 50 mg VIAL 10 mg/ml 5 ml VIAL (50 mg) ONE (11:21)
[2024-06-13] MEDS ORDERED: Magnesium Hydroxide LIQ 30 ML UDC PO PRN (12:44)
[2024-06-13] MEDS ORDERED: Calcium Carb (TUMS) 500 mg CHEW TAB PO PRN (12:44)
[2024-06-13] MEDS ORDERED: Senna TAB 8.6 mg TAB PO PRN (12:44)
[2024-06-13] MEDS ORDERED: Morphine 2 MG/ML SYRINGE IV PRN (12:44)
[2024-06-13] MEDS ORDERED: Dextran 70/Hypromellose Tears Eye Drops 15 ml BTL (for Artificials Tears) BOTH EYES PRN (12:44)
[2024-06-13] MEDS ORDERED: Benzocaine/Menthol LOZ MT PRN (12:44)
[2024-06-13] MEDS: Buffered Lidocaine 1% SYRIN 1 ml INTRADERM ONE (14:27)
[2024-06-13] MEDS: Acetaminophen IV 1 GM/100ML 1,000 MG/100 ML BAG IV ONE (14:27)
[2024-06-13] MEDS: ceFAZolin *3* GM in NS PREMIX 3 GM/100 ML BAG IV ONE (14:28)
[2024-06-13] MEDS: Lactated Ringers 1000 ml BAG 1,000 ML IV SCH ×2 (14:28→14:42)
[2024-06-13] MEDS: Phenol 1.4% Throat Spray BTL MT PRN (14:47)
[2024-06-14 05:20] VITALS: BP 132/79
[2024-06-14] MEDS: COVID VAC 24-25 (12+) (Moderna) Syringe 0.5 mL IM ONE (09:07)
[2024-06-14] MEDS: Influenza Vaccine *TRI* 2024-25* 0.5 ML SYRINGE IM ONE (09:08)
== END 2024-06-14 13:00 | disposition home or self-care (01) ==
LOC: OR 08:25 → SSU 08:25
PROVIDERS: ADMIT Neurological Surgery; ATTEND Neurological Surgery